=== PATIENT | female | born 1950 | race Caucasian/White ===

== ENCOUNTER → 2018-07-25 | Outpatient (CLI) | payer OTHER ==
--- NOTE | 2018-07-25 13:09 | Diagnostic Imaging Report ---
PROCEDURE: US left lower extremity venous. TECHNIQUE: Multiple real-time grayscale images were obtained over the left lower extremity in various projections. Additional duplex Doppler and color Doppler images were also obtained. INDICATION: Left leg swelling. FINDINGS: There is no evidence of left lower extremity DVT. Left lower extremity deep venous system shows normal compressibility with a normal response to augmentation and Valsalva. No fluid collection or mass is seen. IMPRESSION: No evidence of left lower extremity DVT. Dictated by: Dictated on workstation # [id number]
== END ==
LOC: RAD 12:19
PROVIDERS: ATTEND Pediatrics
DX: M79.89 Other specified soft tissue disorders (principal)

== ENCOUNTER → 2018-12-30 | Outpatient (CLI) | payer OTHER ==
--- NOTE | 2018-12-30 16:40 | Diagnostic Imaging Report ---
INDICATION: Right hand pain. TIME OF EXAM: 2:47 p.m. FINDINGS: Three views of the right hand were obtained. The distal radius and ulna are intact. Carpus appears intact. Metacarpals are unremarkable. The phalanges appear to be intact. Alignment is normal. No fractures are seen. IMPRESSION: No acute bony abnormality is detected. Dictated by: Dictated on workstation # [id number]
== END ==
LOC: RAD 14:21
PROVIDERS: ATTEND Pediatrics
DX: M79.641 Pain in right hand (principal)
CPT/HCPCS: 73130

== ENCOUNTER 2020-09-17 15:43 | Emergency (ER) | payer MEDICARE, OTHER ==
[~2020-09-17] VITALS: Ht 160 cm; Wt 105.0 kg
--- NOTE | 2020-09-17 15:50 | ED General ---
General Stated Complaint: HYPOGLYCEMIA History of Present Illness Date Seen by Provider: Sep 17, 2020 Time Seen by Provider: 15:48 Initial Comments 69-year-old female brought in with decreased responsiveness. EMS was called the patient's home where her blood sugar was found to be low and unmeasurable on glucometer. Patient was given an amp of D50. Patient is now feeling better and back to her baseline. Her last blood sugar was 194. Patient is on Metformin. She reports that she just has not had much of an appetite for about the last week and has needed much with little nausea and just not feeling well. She denies any fevers chills cough or other systemic complaints. Patient has had no vomiting or diarrhea. Allergies and Home Medications Allergies Coded Allergies: Penicillins (Verified Allergy, Unknown, 09/17/20) Patient Home Medication List Home Medication List Reviewed: Yes Review of Systems Review of Systems Constitutional: No chills, No fever; malaise EENTM: no symptoms reported Respiratory: no symptoms reported Cardiovascular: no symptoms reported Gastrointestinal: No abdominal pain, No diarrhea; loss of appetite, nausea; No vomiting Genitourinary: no symptoms reported Musculoskeletal: no symptoms reported Skin: no symptoms reported Psychiatric/Neurological: No Symptoms Reported Past Jucparj-Uphjkr-Iccoty Hx Past Med/Social Hx: Reviewed Nursing Past Med/Soc Hx Physical Exam Vital Signs Vital Signs - First Documented 09/17/20 15:43 Temp 36.4 Pulse 70 Resp 18 B/P (MAP) 114/51 (72) Pulse Ox 92 O2 Delivery Room Air Capillary Refill : Height, Weight, BMI Height: '" Weight: lbs. oz. kg; BMI Method: General Appearance: No Apparent Distress, WD/WN HEENT: PERRL/EOMI Respiratory: Lungs Clear, Normal Breath Sounds Cardiovascular: Regular Rate, Rhythm, No Edema Gastrointestinal: Non Tender, Soft Extremity: Normal Capillary Refill, Normal Inspection Neurologic/Psychiatric: Oriented x3, No Motor/Sensory Deficits, Normal Mood/Affect, weight count operator II-XII Norm as Tested Progress/Results/Core Measures Suspected Sepsis SIRS Temperature: Pulse: Respiratory Rate: Laboratory Tests 09/17/20 15:59: White Blood Count 4.3 Blood Pressure / Mean: Laboratory Tests 09/17/20 15:59: Creatinine 2.14H, Platelet Count 145, Total Bilirubin 0.5 Results/Orders Lab Results Laboratory Tests Test 09/17/20 15:47 6/11/21 15:59 09/17/20 16:42 09/17/20 17:24 Range/Units Glucometer 125 H 78 56 *L 70-110 MG/DL White Blood Count 4.3 4.3-11.0 10^3/uL Red Blood Count 4.91 4.35-5.85 10^6/uL Hemoglobin 13.6 11.5-16.0 G/DL Hematocrit 42 35-52 % Mean Corpuscular Volume 86 80-99 FL Mean Corpuscular Hemoglobin 28 25-34 PG Mean Corpuscular Hemoglobin Concent 32 32-36 G/DL Red Cell Distribution Width 15.1 H 10.0-14.5 % Platelet Count 145 130-400 10^3/uL Mean Platelet Volume 10.8 H 7.4-10.4 FL Sodium Level 137 135-145 MMOL/L Potassium Level 3.6 3.6-5.0 MMOL/L Chloride Level 100 98-107 MMOL/L Carbon Dioxide Level 24 21-32 MMOL/L Anion Gap 13 5-14 MMOL/L Blood Urea Nitrogen 60 H 7-18 MG/DL Creatinine 2.14 H 0.60-1.30 MG/DL Estimat Glomerular Filtration Rate 23 BUN/Creatinine Ratio 28 Glucose Level 122 H 70-105 MG/DL Calcium Level 7.8 L 8.5-10.1 MG/DL Corrected Calcium 8.4 L 8.5-10.1 MG/DL Total Bilirubin 0.5 0.1-1.0 MG/DL Aspartate Amino Transf (AST/SGOT) 120 H 5-34 U/L Alanine Aminotransferase (ALT/SGPT) 83 H 0-55 U/L Alkaline Phosphatase 67 40-136 U/L Total Protein 7.1 6.4-8.2 GM/DL Albumin 3.3 3.2-4.5 GM/DL My Orders Orders - RIVERA,CM L DO Cbc No Diff (09/17/20 15:51) Comprehensive Metabolic Panel (09/17/20 15:51) Ua Culture If Indicated (09/17/20 15:51) Accucheck Stat ONCE (09/17/20 15:51) D50w (Emergency) Syringe (Dextrose 50% 5 (09/17/20 17:30) Medications Given in ED Current Medications Medications Dose Ordered Sig/Priscila Route Start Time Stop Time Status Last Admin Dose Admin Dextrose 25 ml ONCE ONCE IV 09/17/20 17:30 09/17/20 17:31 DC 09/17/20 17:30 25 ML Vital Signs/I&O 09/17/20 15:43 Temp 36.4 Pulse 70 Resp 18 B/P (MAP) 114/51 (72) Pulse Ox 92 O2 Delivery Room Air Capillary Refill : Departure Impression Primary Impression: Hypoglycemia Disposition: HOME, SELF-CARE Condition: Stable Departure-Patient Inst. Referrals: BEN FORRESTER MD (PCP) Primary Care Physician Patient Instructions: HYPOGLYCEMIA Add. Discharge Instructions: hold metformin until appetite returns frequent small meals. CM RIVERA DO Sep 17, 2020 15:50
[2020-09-17 16:02] LABS: HEMATOCRIT 42 % (35-52); HEMOGLOBIN 13.6 G/DL (11.5-16.0); MEAN CORPUSCULAR HEMOGLOBIN 28 PG (25-34); MEAN CORPUSCULAR HGB CONC 32 G/DL (32-36); MEAN CORPUSCULAR VOLUME 86 FL (80-99); MEAN PLATELET VOLUME 10.8 FL (7.4-10.4); PLATELET COUNT 145 10^3/uL (130-400); WHITE BLOOD COUNT 4.3 10^3/uL (4.3-11.0)
[2020-09-17 16:22] LABS: POTASSIUM 3.6 MMOL/L (3.6-5.0)
[2020-09-17 16:23] LABS: ALBUMIN 3.3 GM/DL (3.2-4.5); BILIRUBIN,TOTAL 0.5 MG/DL (0.1-1.0); CALCIUM 7.8 MG/DL (8.5-10.1); CREATININE SERUM 2.14 MG/DL (0.60-1.30); TOTAL PROTEIN 7.1 GM/DL (6.4-8.2)
[2020-09-17] MEDS ORDERED: DEXTROSE 50% 50 ML (IMS) SYR ONE (17:27)
[2020-09-17] MEDS ORDERED: DEXTROSE 50% 50 ML (IMS) SYR IV ONE (17:30)
[2020-09-17 18:14] VITALS: BP 125/56
== END 2020-09-17 18:14 | disposition home or self-care (01) ==
LOC: EDUNIT# 15:43 → ER FS 15:44
DX: E16.2 Hypoglycemia, unspecified (principal)
CPT/HCPCS: 36415; 80053; 82947; 85027

== ENCOUNTER 2022-11-24 00:19 | Inpatient (IN) | payer MEDICARE, OTHER ==
[~2022-11-24] VITALS: Ht 160 cm; Wt 99.0 kg
[~2022-11-24 00:19] MED LIST: ALLO100T PO; ASPI-1238 PO; CARV3.122 PO; CARV6.252 PO; CITA20TA9 PO; DOCU-239 PO; FEN12TD TD; FOLI1TAB33 PO; FURO40TA4 PO; GBPN600T PO; GLIM2TAB4 PO; LIDO700A45 TP; LISI10TA25 PO; LISI5TAB20 PO; METF-397 PO; MGX400T PO; MORP-68 PO; OXC5T PO; OXYC5SOL19 NG; PETR113O TP; POTA-160 PO; POTA-185 PO; SENN-271 PO; THIA100T66 OG; THIA100T80 PO
--- NOTE | 2022-11-24 00:30 | ED Respiratory ---
General Stated Complaint: SOA Source: patient, EMS, old records Exam Limitations: no limitations History of Present Illness Date Seen by Provider: Nov 24, 2022 Time Seen by Provider: 00:18 Initial Comments 72-year-old female with past medical history of PE on warfarin, hypertension, ?CHF on lasix, and she also wears nighttime oxygen at 2 L coming in via EMS due to shortness of breath and respiratory failure. She felt short of breath about an hour prior to calling 911. She states it was fairly rapid in onset. EMS reports crackles in all lung adame and that she sounded "wet". She has noticed an increase in edema in both of her legs. She was on 4 L oxygen on EMS arrival with oxygen at 84%. They placed her on a nonrebreather followed by CPAP with improvement in her oxygenation. She states she is feeling much more comfortable now. EMS started an IV and gave 80 mg of Lasix. She takes 40 mg p.o. daily. She has not missed any doses of any of her medications including none missed of her warfarin. Allergies and Home Medications Allergies Coded Allergies: Penicillins (Verified Allergy, Unknown, 09/17/20) Patient Home Medication List Home Medication List Reviewed: Yes Allopurinol (Allopurinol) 100 Mg Tablet, 100 MG PO DAILY, (Reported) Entered as Reported by: CHUCK OLSON on 10/05/201313 Last Action: Last Taken Edited Aspirin (Aspirin EC) 81 Mg Tablet.dr, 81 MG PO DAILY Prescribed by: HUAN MCKEON on 10/20/20 1017 Last Action: Last Taken Edited Docusate Sodium (Colace) 100 Mg Capsule, 100 MG PO DAILY, (Reported) Entered as Reported by: RISHABH MCNEILL on 11/24/22112 Last Action: New Order Duloxetine HCl (Duloxetine HCl) 60 Mg Capsule.dr, 60 MG PO DAILY, (Reported) Entered as Reported by: RISHABH MCNEILL on 11/24/22112 Last Action: Last Taken Edited Furosemide (Furosemide) 40 Mg Tablet, 60 MG PO DAILY, (Reported) Entered as Reported by: CHUCK OLSON on 10/05/201313 Last Action: Last Taken Edited Gabapentin (Gabapentin) 600 Mg Tablet, 600 MG PO TID, (Reported) Entered as Reported by: RISHABH MCNEILL on 11/24/22112 Last Action: Last Taken Edited Lisinopril (Lisinopril) 10 Mg Tablet, 10 MG PO DAILY, (Reported) Entered as Reported by: RISHABH MCNEILL on 11/24/22112 Last Action: Last Taken Edited Metformin HCl (Metformin HCl) 500 Mg Tablet, 500 MG PO BID, (Reported) Entered as Reported by: RISHABH MCNEILL on 11/24/22112 Last Action: Last Taken Edited Morphine Sulfate (Morphine Sulfate ER) 15 Mg Tablet.er, 15 MG PO Q12H Prescribed by: HUAN MCKEON on 10/19/207 Last Action: Last Taken Edited Oxycodone Hcl (Oxyir Tablet) 5 Mg Tab, 5 MG PO Q4H PRN for PAIN-SEVERE (8-10) Prescribed by: HUAN MCKEON on 10/18/201850 Last Action: Last Taken Edited Warfarin Sodium (Warfarin Sodium) 10 Mg Tablet, 10 MG PO DAILY, (Reported) Entered as Reported by: RISHABH MCNEILL on 11/24/22112 Last Action: Last Taken Edited Warfarin Sodium (Warfarin Sodium) 1 Mg Tablet, 1 MG PO DAILY, (Reported) Entered as Reported by: RISHABH MCNEILL on 11/24/22112 Last Action: New Order Discontinued Medications Carvedilol (Carvedilol) 3.125 Mg Tablet, 3.125 MG PO BID Discontinued Reason: Referral/FU Appt-Addtl Prescribed by: HUAN MCKEON on 10/18/201850 Last Action: Discontinued Citalopram Hydrobromide (Citalopram HBr) 20 Mg Tablet, 20 MG PO DAILY Discontinued Reason: Referral/FU Appt-Addtl Prescribed by: HUAN MCKEON on 10/18/201850 Last Action: Discontinued Docusate Sodium (Dok) 100 Mg Capsule, 100 MG PO BID Discontinued Reason: Referral/FU Appt-Addtl Prescribed by: HUAN MCKEON on 10/18/201850 Last Action: Discontinued Folic Acid (Folic Acid) 1 Mg Tablet, 1 MG PO DAILY Discontinued Reason: Referral/FU Appt-Addtl Prescribed by: HUAN MCKEON on 10/18/201850 Last Action: Discontinued Gabapentin (Gabapentin) 600 Mg Tablet, 300 MG PO TID, (Reported) Discontinued Reason: Referral/FU Appt-Addtl Entered as Reported by: CHUCK OLSON on 10/05/20 1314 Last Action: Discontinued Lisinopril (Lisinopril) 5 Mg Tablet, 5 MG PO DAILY Discontinued Reason: Referral/FU Appt-Addtl Prescribed by: HUAN MCKEON on 10/18/201850 Last Action: Discontinued Magnesium Oxide (Magnesium Oxide) 400 Mg Tablet, 400 MG PO BID Discontinued Reason: Referral/FU Appt-Addtl Prescribed by: HUAN MCKEON on 10/18/201850 Last Action: Discontinued Potassium Chloride (Klor-Con 10) 10 Meq Tablet.er, 10 MEQ PO BID WITH MEALS Discontinued Reason: Referral/FU Appt-Addtl Prescribed by: HUAN MCKEON on 10/18/201850 Last Action: Discontinued Sennosides/Docusate Sodium (Stool Softener-Laxative Tablet) 1 Each Tablet, 1 EA PO BID PRN for CONSTIPATION-2ND LINE Discontinued Reason: Referral/FU Appt-Addtl Prescribed by: HUAN MCKEON on 10/18/201850 Last Action: Discontinued Thiamine HCl (Vitamin B-1) 100 Mg Tablet, 100 MG PO DAILY Discontinued Reason: Referral/FU Appt-Addtl Prescribed by: HUAN MCKEON on 10/18/201850 Last Action: Discontinued Review of Systems Review of Systems Constitutional: No fever EENTM: no symptoms reported Respiratory: see HPI Cardiovascular: no symptoms reported Gastrointestinal: no symptoms reported Genitourinary: no symptoms reported Musculoskeletal: no symptoms reported Skin: no symptoms reported Psychiatric/Neurological: No Symptoms Reported Hematologic/Lymphatic: See HPI Past Bmzyuyp-Wqqcma-Jrkatr Hx Patient Social History Substance use?: No Seasonal Allergies Seasonal Allergies: No Past Medical History Surgeries: Yes Cardiac, Hysterectomy Respiratory: No Cardiac: Yes Coronary Artery Disease, Hypertension 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 oz. kg; 37.30 BMI Method: General Appearance: WD/WN, no apparent distress, other (on CPAP) Eyes: Bilateral Eye Normal Inspection HEENT: PERRL/EOMI, normal ENT inspection, pharynx normal Neck: non-tender, full range of motion, supple, normal inspection Respiratory: chest non-tender, accessory muscle use, crackles Cardiovascular: tachycardia Gastrointestinal: normal bowel sounds, non tender, soft Extremities: normal range of motion, non-tender, normal inspection, no calf tenderness, normal capillary refill, pedal edema Neurologic/Psychiatric: no motor/sensory deficits, alert, normal mood/affect, oriented x 3 Skin: normal color, warm/dry Focused Exam Lactate Level 11/24/22 00:25: Lactic Acid Level 6.91*H Lactic Acid Level Laboratory Tests Test 11/24/22 00:25 Lactic Acid Level 6.91 MMOL/L (0.50-2.00) *H Progress/Results/Core Measures Suspected Sepsis SIRS Temperature: Pulse: Respiratory Rate: Laboratory Tests 11/24/22 00:25: White Blood Count 9.5 Blood Pressure / Mean: 11/24/22 00:25: Lactic Acid Level 6.91*H Laboratory Tests 11/24/22 00:25: Creatinine 0.73, INR Comment 2.1H, Platelet Count 375, Total Bilirubin 0.4 Results/Orders Lab Results Laboratory Tests Test 11/24/22 00:25 11/24/22 00:30 Range/Units White Blood Count 9.5 4.3-11.0 10^3/uL Red Blood Count 4.11 3.80-5.11 10^6/uL Hemoglobin 9.2 L 11.5-16.0 g/dL Hematocrit 32 L 35-52 % Mean Corpuscular Volume 78 L 80-99 fL Mean Corpuscular Hemoglobin 22 L 25-34 pg Mean Corpuscular Hemoglobin Concent 29 L 32-36 g/dL Red Cell Distribution Width 17.9 H 10.0-14.5 % Platelet Count 375 130-400 10^3/uL Mean Platelet Volume 10.1 9.0-12.2 fL Immature Granulocyte % (Auto) 1 % Neutrophils (%) (Auto) 64 42-75 % Lymphocytes (%) (Auto) 26 12-44 % Monocytes (%) (Auto) 8 0-12 % Eosinophils (%) (Auto) 2 0-10 % Basophils (%) (Auto) 0 0-10 % Neutrophils # (Auto) 6.1 1.8-7.8 10^3/uL Lymphocytes # (Auto) 2.5 1.0-4.0 10^3/uL Monocytes # (Auto) 0.7 0.0-1.0 10^3/uL Eosinophils # (Auto) 0.2 0.0-0.3 10^3/uL Basophils # (Auto) 0.0 0.0-0.1 10^3/uL Immature Granulocyte # (Auto) 0.1 0.0-0.1 10^3/uL Prothrombin Time 23.9 H 12.2-14.7 SEC INR Comment 2.1 H 0.8-1.4 Activated Partial Thromboplast Time 36 H 24-35 SEC Sodium Level 136 135-145 MMOL/L Potassium Level 4.2 3.6-5.0 MMOL/L Chloride Level 96 L 98-107 MMOL/L Carbon Dioxide Level 20 L 21-32 MMOL/L Anion Gap 20 H 5-14 MMOL/L Blood Urea Nitrogen 16 7-18 MG/DL Creatinine 0.73 0.60-1.30 MG/DL Estimat Glomerular Filtration Rate 87 BUN/Creatinine Ratio 22 Glucose Level 342 H 70-105 MG/DL Lactic Acid Level 6.91 *H 0.50-2.00 MMOL/L Calcium Level 9.1 8.5-10.1 MG/DL Corrected Calcium 9.2 8.5-10.1 MG/DL Magnesium Level 1.8 1.6-2.4 MG/DL Total Bilirubin 0.4 0.1-1.0 MG/DL Aspartate Amino Transf (AST/SGOT) 39 H 5-34 U/L Alanine Aminotransferase (ALT/SGPT) 40 0-55 U/L Alkaline Phosphatase 120 40-136 U/L Troponin I < 0.30 <0.30 NG/ML Pro-B-Type Natriuretic Peptide 304.9 H <125.0 PG/ML Total Protein 7.4 6.4-8.2 GM/DL Albumin 3.9 3.2-4.5 GM/DL Influenza Type A (RT-PCR) Not Detected Not Detecte Influenza Type B (RT-PCR) Not Detected Not Detecte SARS-CoV-2 RNA (RT-PCR) Not Detected Not Detecte [facility],MICHELLE K MD Cbc With Automated Diff (11/24/22) Comprehensive Metabolic Panel (11/24/22) Lactic Acid Analyzer (11/24/22) Magnesium (11/24/22) Protime With Inr (11/24/22) Partial Thromboplastin Time (11/24/22) Influenza A And B By Pcr (11/24/22) Probnp Fs (11/24/22) Troponin I Fs (11/24/22) Chest 1 View Ap/Pa Only (11/24/22) Ed Iv/Invasive Line Start (11/24/22) Ekg Tracing (11/24/22) O2 (11/24/22) Monitor-Rhythm Ecg Trace Only (11/24/22) Covid 19 Inhouse Test (11/24/22) Vital Signs/I&O 11/24/22 11/24/22 11/24/22 11/24/22 00:20 00:20 00:20 00:20 Temp 35.3 Pulse 102 Resp 24 B/P (MAP) 127/57 (80) Pulse Ox 98 98 98 O2 Delivery NIV CPAP NIV CPAP Nasal Cannula NIV CPAP O2 Flow Rate 2.00 FiO2 50 50 Capillary Refill : Progress Note : Progress Note 73-year-old female presenting due to respiratory failure and difficulty breathing. The patient was on CPAP per EMS, we transitioned her over to BiPAP with improvement in her work of breathing. Lung sounds were crackles all over. Blood pressure after BiPAP between 110s and 130s systolic, did not require medication to lower it. This came on very suddenly, clinically seems more consistent with flash pulmonary edema. She has been consistent with her warfarin dosing and her INR has been therapeutic, unlikely that this is a worsening burden of her PE, especially given the BiPAP improved her symptoms so much. Also less likely to be infectious in etiology given how fast it came on. Antibiotics were not given because of this. I also believe fluids would be detrimental to the patient at this point. Chest x-ray ordered and interpreted by me showing pulmonary edema bilaterally in all lung adame. Patient had received 80 mg of IV Lasix per EMS, and she had good urinary output in the ER. An IV was placed and labs were obtained and were significant for normal white blood cell count, low hemoglobin around 9.1 which is lower than her baseline, unclear of the etiology at this point, but no clinical signs of bleeding. Her creatinine is normal, electrolytes unremarkable, troponin negative, proBNP slightly elevated, INR therapeutic. Flu and COVID test were negative. Her lactic acid was very elevated at 6.91. This is likely secondary to her being hypoxic for some time prior to arrival. Once again I do not believe fluids would be helpful in her specific case. I contacted Dr. Mckeon who will admit the patient to the intensive care unit for her acute respiratory failure and pulmonary edema. I then contacted the ICU physician for signout. I then placed an order for consult with a ladies' locker room attendant in the morning. ECG Initial ECG Impression Date: Nov 24, 2022 Initial ECG Impression Time: 00:46 Initial ECG Rate: 104 Initial ECG Rhythm: S.Tach Comment Narrow QRS, normal axis, ST depression in the high lateral leads, no STEMI Diagnostic Imaging Diagonstic Imaging: Xray (chest) Departure Impression Primary Impression: Respiratory failure Qualified Codes: J96.01 - Acute respiratory failure with hypoxia Additional Impressions: Pulmonary edema Qualified Codes: J81.0 - Acute pulmonary edema Lactic acidosis Disposition: 30 STILL A PATIENT Condition: Stable Admissions Decision to Admit Reason: Admit from ER (General) Decision to Admit/Date: Nov 24, 2022 Time/Decision to Admit Time: 01:20 Transfer Transfer Facility: [facility] Method of Transfer: EMS Departure-Patient Inst. Referrals: BEN FORRESTER MD (PCP/Family) Primary Care Physician MICHELLE GONZALEZ MD Nov 24, 2022 00:30
[2022-11-24 00:44] LABS: BASOPHILS % (AUTO) 0 % (0-10); EOSINOPHILS # (AUTO) 0.2 10^3/uL (0.0-0.3); EOSINOPHILS % (AUTO) 2 % (0-10); HEMATOCRIT 32 % (35-52); HEMOGLOBIN 9.2 g/dL (11.5-16.0); LYMPHOCYTES # (AUTO) 2.5 10^3/uL (1.0-4.0); LYMPHOCYTES % (AUTO) 26 % (12-44); MEAN CORPUSCULAR HEMOGLOBIN 22 pg (25-34); MEAN CORPUSCULAR HGB CONC 29 g/dL (32-36); MEAN CORPUSCULAR VOLUME 78 fL (80-99); MEAN PLATELET VOLUME 10.1 fL (9.0-12.2); MONOCYTES # (AUTO) 0.7 10^3/uL (0.0-1.0); MONOCYTES % (AUTO) 8 % (0-12); NEUTROPHILS # (AUTO) 6.1 10^3/uL (1.8-7.8); NEUTROPHILS % (AUTO) 64 % (42-75); PLATELET COUNT 375 10^3/uL (130-400); WHITE BLOOD COUNT 9.5 10^3/uL (4.3-11.0)
[2022-11-24 01:10] LABS: INR 2.1 (0.8-1.4); PROTHROMBIN TIME PATIENT 23.9 SEC (12.2-14.7)
[2022-11-24] MEDS ORDERED: WRF1T PO (01:13)
[2022-11-24] MEDS ORDERED: DULO60CA59 PO (01:13)
[2022-11-24] MEDS ORDERED: DOCU-143 PO (01:13)
[2022-11-24] MEDS ORDERED: GBPN600T PO ×2 (01:13→11:12)
[2022-11-24] MEDS ORDERED: LISI10TA25 PO (01:13)
[2022-11-24] MEDS ORDERED: WRF10T PO (01:13)
[2022-11-24] MEDS ORDERED: METF-397 PO (01:13)
[2022-11-24 01:16] LABS: ALANINE AMINOTRANSFERASE 40 U/L (0-55); ALKALINE PHOSPHATASE 120 U/L (40-136); BILIRUBIN,TOTAL 0.4 MG/DL (0.1-1.0); BUN/CREATININE RATIO 22; CALCIUM 9.1 MG/DL (8.5-10.1); CARBON DIOXIDE 20 MMOL/L (21-32); CHLORIDE 96 MMOL/L (98-107); CREATININE SERUM 0.73 MG/DL (0.60-1.30); GFR ESTIMATED 87; GLUCOSE 342 MG/DL (70-105); MAGNESIUM 1.8 MG/DL (1.6-2.4); POTASSIUM 4.2 MMOL/L (3.6-5.0); SODIUM 136 MMOL/L (135-145)
[2022-11-24 01:17] LABS: ALBUMIN 3.9 GM/DL (3.2-4.5); TOTAL PROTEIN 7.4 GM/DL (6.4-8.2)
[2022-11-24] MEDS ORDERED: CATHETER FLUSH 10 ML SYR IVP PRN (03:45)
[2022-11-24] MEDS ORDERED: ACETAMINOPHEN 500 MG TABLET PO PRN ×2 (04:00→13:30)
[2022-11-24] MEDS ORDERED: ONDANSETRON INJECTION 4 MG/2 ML (SDV) IV PRN ×2 (04:00→09:45)
[2022-11-24 04:34] LABS: CALCIUM 8.7 MG/DL (8.5-10.1); CREATININE SERUM 0.9 MG/DL (0.60-1.30); POTASSIUM 4.7 MMOL/L (3.6-5.0)
[2022-11-24 05:01] VITALS: BP 127/57
[2022-11-24 05:11] LABS: BASOPHILS # (AUTO) 0.1 10^3/uL (0.0-0.1); BASOPHILS % (AUTO) 0 % (0-10); EOSINOPHILS # (AUTO) 0.1 10^3/uL (0.0-0.3); EOSINOPHILS % (AUTO) 0 % (0-10); HEMATOCRIT 31 % (35-52); LYMPHOCYTES # (AUTO) 2.7 10^3/uL (1.0-4.0); LYMPHOCYTES % (AUTO) 23 % (12-44); MEAN CORPUSCULAR HEMOGLOBIN 23 pg (25-34); MEAN CORPUSCULAR HGB CONC 30 g/dL (32-36); MEAN CORPUSCULAR VOLUME 76 fL (80-99); MEAN PLATELET VOLUME 10.4 fL (9.0-12.2); MONOCYTES % (AUTO) 9 % (0-12); NEUTROPHILS # (AUTO) 7.9 10^3/uL (1.8-7.8); NEUTROPHILS % (AUTO) 67 % (42-75); PLATELET COUNT 354 10^3/uL (130-400); WHITE BLOOD COUNT 11.8 10^3/uL (4.3-11.0)
[2022-11-24] MEDS ORDERED: NS IV 500 ML 500 ML IV PRN (05:45)
[2022-11-24 05:50] LABS: HYPOCHROMASIA SLIGHT; LYMPHOCYTES % (MANUAL) 23 %; MONOCYTES % (MANUAL) 7 %; NEUTROPHILS % (MANUAL) 70 %
[2022-11-24 05:51] LABS: POLYCHROMASIA SLIGHT
[2022-11-24] MEDS: MAGNESIUM 1 GM/100 ML IVPB 100 ML IV SCH ×2 (05:52→06:47)
[2022-11-24] MEDS: inSUlin ASPART 1 UNIT/0.01 ML (PER UNIT) SC SCH ×4 (05:52→20:50)
[2022-11-24] MEDS: POTASSIUM CHLORIDE 20 MEQ TABLET PO SCH ×2 (06:39→06:48)
[2022-11-24] MEDS: FUROSEMIDE INJECTION 40 MG/4 ML VIAL IV SCH (06:40)
[2022-11-24] MEDS: POTASSIUM CL 10MEQ/50ML IVPB 50 ML IV SCH (06:46)
[2022-11-24] MEDS: CATHETER FLUSH 10 ML SYR IVP SCH ×3 (06:47→23:11)
[2022-11-24] MEDS: morphine EXTENDED RELEASE 15 MG TABLET PO SCH ×2 (08:09→20:49)
[2022-11-24] MEDS: oxyCODONE IMMEDIATE RELEASE 5 MG TABLET PO SCH ×2 (08:09→20:50)
--- NOTE | 2022-11-24 08:30 | Diagnostic Imaging Report ---
INDICATION: Sudden onset shortness of air. COMPARISON: None FINDINGS: Single frontal radiographic view of the chest was obtained and demonstrates mild cardiomegaly and pulmonary vascular congestion. There is also diffuse prominence of interstitium. No large effusion or pneumothorax is seen. Osseous structures show no acute abnormalities. IMPRESSION:. Cardiomegaly with probable sequela CHF including interstitial pulmonary edema. Dictated by: Dictated on workstation # [id number]
[2022-11-24] MEDS: RT-ALBUTEROL SULF 2.5 MG/3 ML PRE-MIX VIAL INH SCH ×3 (09:04→20:15)
[2022-11-24] MEDS ORDERED: CALCIUM CARBONATE 500 MG CHEW TABLET PO PRN (09:45)
[2022-11-24] MEDS ORDERED: ANTACID SUSPENSION 30 ML UDC PO PRN (09:45)
[2022-11-24] MEDS ORDERED: MELATONIN 3 MG TABLET PO PRN (09:45)
[2022-11-24] MEDS ORDERED: BISACODYL 10 MG SUPPOSITORY PR PRN (09:45)
[2022-11-24] MEDS ORDERED: MILK OF MAGNESIA 400 MG/5 ML 30 ML UDC PO PRN (09:45)
[2022-11-24] MEDS ORDERED: ONDANSETRON 4 MG ORAL DISSOLVE TABLET PO PRN (09:45)
[2022-11-24] MEDS ORDERED: LACTULOSE SYRUP 10GM/15ML 30ML UDC PO PRN (09:45)
[2022-11-24] MEDS ORDERED: BISA-89 PO (11:12)
[2022-11-24] MEDS ORDERED: ASPI-1238 PO (11:12)
[2022-11-24] MEDS ORDERED: OXYC5TAB PO (11:12)
[2022-11-24] MEDS ORDERED: MORP-68 PO (11:12)
[2022-11-24 16:26] VITALS: BP 112/70
[2022-11-24] MEDS ORDERED: RT-ALBUTEROL SULF 2.5 MG/3 ML PRE-MIX VIAL INH PRN (17:00)
--- NOTE | 2022-11-24 18:12 | Consultation-Cardiology ---
HPI-Cardiology Cardiology Consultation: Date of Consultation 11/24/22 Date of Admission Attending Physician Justin Curiel MD Admitting Physician Admitting Physician: Faiza Mckeon DO Attending Physician: Lila Glez MD Consulting Physician Carlos GONZALEZ MD HPI: Time Seen by a Provider: 12:00 Chief Complaint: Shortness of breath This is a 72-year-old lady who has history of pulmonary embolism but has been compliant with warfarin. Also has history of hypertension. She tells me that she does have history of diastolic congestive heart failure chronic. She is on nighttime oxygen. Unclear history of COPD. She presents with shortness of breath and respiratory failure. She was hypoxic in the field with bilateral peripheral edema and rhonchi. She was given a nonrebreather which improved her breathing. She was also given IV Lasix. She denies active smoking. Review of Systems-Cardiology Review of Systems Constitutional: no symptoms reported Eyes: no symptoms reported Ears/Nose/Throat: no symptoms reported Respiratory: shortness of breath Cardiovascular: no symptoms reported KAL-Nfbalr-Jlxshm Hx Patient Social History 2nd Hand Smoke Exposure: No Alcohol Use?: No Pt feels they are or have been: No Past Medical History PMH As described under Assessment. Allergies and Home Medications Allergies Coded Allergies: Penicillins (Verified Allergy, Unknown, 09/17/20) Patient Home Medication List Home Medication List Reviewed: Yes Allopurinol (Allopurinol) 100 Mg Tablet, 100 MG PO DAILY, (Reported) Entered as Reported by: CHUCK OLSON on 10/05/20 1314 Last Action: Reviewed Aspirin (Aspirin EC) 81 Mg Tablet.dr, 81 MG PO HS, (Reported) Entered as Reported by: CHUCK OLSON on 11/24/22 111 Last Action: Reviewed Bisacodyl (Laxative) 5 Mg Tablet, 5 MG PO DAILY PRN for CONSTIPATION-4TH LINE, (Reported) Entered as Reported by: CHUCK OLSON on 11/24/22 111 Last Action: Reviewed Docusate Sodium (Colace) 100 Mg Capsule, 100 MG PO Q48H, (Reported) Entered as Reported by: RISHABH MCNEILL on 11/24/22112 Last Action: Reviewed Duloxetine HCl (Duloxetine HCl) 60 Mg Capsule.dr, 60 MG PO HS, (Reported) Entered as Reported by: RISHABH MCNEILL on 11/24/22112 Last Action: Reviewed Furosemide (Furosemide) 40 Mg Tablet, 60 MG PO DAILY, (Reported) Entered as Reported by: CHUCK OLSON on 10/05/20 1314 Last Action: Reviewed Gabapentin (Gabapentin) 600 Mg Tablet, 600 MG PO DAILY, (Reported) Entered as Reported by: RISHABH MCNEILL on 11/24/22112 Last Action: Reviewed Gabapentin (Gabapentin) 600 Mg Tablet, 1,200 MG PO HS, (Reported) Entered as Reported by: CHUCK OLSON on 11/24/221111 Last Action: Reviewed Lisinopril (Lisinopril) 10 Mg Tablet, 10 MG PO DAILY, (Reported) Entered as Reported by: RISHABH MCNEILL on 11/24/22112 Last Action: Reviewed Metformin HCl (Metformin HCl) 500 Mg Tablet, 500 MG PO BID, (Reported) Entered as Reported by: RISHABH MCNEILL on 11/24/22112 Last Action: Reviewed Morphine Sulfate (Morphine Sulfate ER) 15 Mg Tablet.er, 15 MG PO Q12H, (Reported) Entered as Reported by: CHUCK OLSON on 11/24/221111 Last Action: Reviewed Oxycodone HCl (Oxycodone HCl) 5 Mg Tablet, 5 MG PO BID, (Reported) Entered as Reported by: CHUCK OLSON on 11/24/221111 Last Action: Reviewed Warfarin Sodium (Warfarin Sodium) 10 Mg Tablet, 10 MG PO HS, (Reported) Entered as Reported by: RISHABH MCNEILL on 11/24/22112 Last Action: Reviewed Warfarin Sodium (Warfarin Sodium) 1 Mg Tablet, 3 MG PO HS, (Reported) Entered as Reported by: RISHABH MCNEILL on 11/24/22112 Last Action: Reviewed Discontinued Medications Aspirin (Aspirin EC) 81 Mg Tablet.dr, 81 MG PO DAILY Discontinued Reason: No Longer Taking Prescribed by: FAIZA MCKEON on 10/20/20 1017 Last Action: Discontinued Carvedilol (Carvedilol) 3.125 Mg Tablet, 3.125 MG PO BID Discontinued Reason: Referral/FU Appt-Addtl Prescribed by: FAIZA MCKEON on 10/18/20 1498 Last Action: Discontinued Citalopram Hydrobromide (Citalopram HBr) 20 Mg Tablet, 20 MG PO DAILY Discontinued Reason: Referral/FU Appt-Addtl Prescribed by: FAIZA MCKEON on 10/18/201850 Last Action: Discontinued Docusate Sodium (Dok) 100 Mg Capsule, 100 MG PO BID Discontinued Reason: Referral/FU Appt-Addtl Prescribed by: FAIZA MCKEON on 10/18/201850 Last Action: Discontinued Folic Acid (Folic Acid) 1 Mg Tablet, 1 MG PO DAILY Discontinued Reason: Referral/FU Appt-Addtl Prescribed by: FAIZA MCKEON on 10/18/201850 Last Action: Discontinued Gabapentin (Gabapentin) 600 Mg Tablet, 300 MG PO TID, (Reported) Discontinued Reason: Referral/FU Appt-Addtl Entered as Reported by: HCUCK OLSON on 10/05/20 1314 Last Action: Discontinued Lisinopril (Lisinopril) 5 Mg Tablet, 5 MG PO DAILY Discontinued Reason: Referral/FU Appt-Addtl Prescribed by: FAIZA MCKEON on 10/18/201850 Last Action: Discontinued Magnesium Oxide (Magnesium Oxide) 400 Mg Tablet, 400 MG PO BID Discontinued Reason: Referral/FU Appt-Addtl Prescribed by: FAIZA MCKEON on 10/18/201850 Last Action: Discontinued Morphine Sulfate (Morphine Sulfate ER) 15 Mg Tablet.er, 15 MG PO Q12H Discontinued Reason: Duplicate Order Prescribed by: FAIZA MCKEON on 10/19/20 1327 Last Action: Discontinued Oxycodone Hcl (Oxyir Tablet) 5 Mg Tab, 5 MG PO Q4H PRN for PAIN-SEVERE (8-10) Discontinued Reason: No Longer Taking Prescribed by: FAIZA MCKEON on 10/18/201850 Last Action: Discontinued Potassium Chloride (Klor-Con 10) 10 Meq Tablet.er, 10 MEQ PO BID WITH MEALS Discontinued Reason: Referral/FU Appt-Addtl Prescribed by: FAIZA MCKEON on 10/18/201850 Last Action: Discontinued Sennosides/Docusate Sodium (Stool Softener-Laxative Tablet) 1 Each Tablet, 1 EA PO BID PRN for CONSTIPATION-2ND LINE Discontinued Reason: Referral/FU Appt-Addtl Prescribed by: FAIZA MCKEON on 10/18/201850 Last Action: Discontinued Thiamine HCl (Vitamin B-1) 100 Mg Tablet, 100 MG PO DAILY Discontinued Reason: Referral/FU Appt-Addtl Prescribed by: FAIZA MCKEON on 10/18/201850 Last Action: Discontinued Exam Vital Signs Vital Signs Date Time Temp Pulse Resp B/P (MAP) Pulse Ox O2 Delivery O2 Flow Rate FiO2 11/24/22 17:00 94 18 125/69 (83) 100 Nasal Cannula 1.00 11/24/22 16:26 36.3 24 Physical Exam Constitutional: Mild respiratory distress. Chest: Decreased air entry bilaterally. CVS: Normal regular rate and rhythm. Neuro: Nonfocal. Mild peripheral edema. Labs Laboratory Tests Test 11/24/22 00:25 11/24/22 00:30 11/24/22 03:50 11/24/22 04:53 Range/Units White Blood Count 9.5 11.8 H 4.3-11.0 10^3/uL Red Blood Count 4.11 3.99 3.80-5.11 10^6/uL Hemoglobin 9.2 L 9.0 L 11.5-16.0 g/dL Hematocrit 32 L 31 L 35-52 % Mean Corpuscular Volume 78 L 76 L 80-99 fL Mean Corpuscular Hemoglobin 22 L 23 L 25-34 pg Mean Corpuscular Hemoglobin Concent 29 L 30 L 32-36 g/dL Red Cell Distribution Width 17.9 H 17.8 H 10.0-14.5 % Platelet Count 375 354 130-400 10^3/uL Mean Platelet Volume 10.1 10.4 9.0-12.2 fL Immature Granulocyte % (Auto) 1 1 % Neutrophils (%) (Auto) 64 67 42-75 % Lymphocytes (%) (Auto) 26 23 12-44 % Monocytes (%) (Auto) 8 9 0-12 % Eosinophils (%) (Auto) 2 0 0-10 % Basophils (%) (Auto) 0 0 0-10 % Neutrophils # (Auto) 6.1 7.9 H 1.8-7.8 10^3/uL Lymphocytes # (Auto) 2.5 2.7 1.0-4.0 10^3/uL Monocytes # (Auto) 0.7 1.0 0.0-1.0 10^3/uL Eosinophils # (Auto) 0.2 0.1 0.0-0.3 10^3/uL Basophils # (Auto) 0.0 0.1 0.0-0.1 10^3/uL Immature Granulocyte # (Auto) 0.1 0.1 0.0-0.1 10^3/uL Prothrombin Time 23.9 H 12.2-14.7 SEC INR Comment 2.1 H 0.8-1.4 Activated Partial Thromboplast Time 36 H 24-35 SEC Sodium Level 136 135 135-145 MMOL/L Potassium Level 4.2 4.7 3.6-5.0 MMOL/L Chloride Level 96 L 99 98-107 MMOL/L Carbon Dioxide Level 20 L 24 21-32 MMOL/L Anion Gap 20 H 12 5-14 MMOL/L Blood Urea Nitrogen 16 15 7-18 MG/DL Creatinine 0.73 0.90 0.60-1.30 MG/DL Estimat Glomerular Filtration Rate 87 68 BUN/Creatinine Ratio 22 17 Glucose Level 342 H 282 H 70-105 MG/DL Lactic Acid Level 6.91 *H 2.93 *H 0.50-2.00 MMOL/L Calcium Level 9.1 8.7 8.5-10.1 MG/DL Corrected Calcium 9.2 8.5-10.1 MG/DL Magnesium Level 1.8 1.8 1.6-2.4 MG/DL Total Bilirubin 0.4 0.1-1.0 MG/DL Aspartate Amino Transf (AST/SGOT) 39 H 5-34 U/L Alanine Aminotransferase (ALT/SGPT) 40 0-55 U/L Alkaline Phosphatase 120 40-136 U/L Troponin I < 0.30 <0.30 NG/ML Pro-B-Type Natriuretic Peptide 304.9 H <125.0 PG/ML Total Protein 7.4 6.4-8.2 GM/DL Albumin 3.9 3.2-4.5 GM/DL Influenza Type A (RT-PCR) Not Detected Not Detecte Influenza Type B (RT-PCR) Not Detected Not Detecte SARS-CoV-2 RNA (RT-PCR) Not Detected Not Detecte Neutrophils % (Manual) 70 % Lymphocytes % (Manual) 23 % Monocytes % (Manual) 7 % Polychromasia SLIGHT Hypochromasia SLIGHT Test 11/24/22 07:03 11/24/22 08:50 11/24/22 11:05 11/24/22 16:32 Range/Units Lactic Acid Level 2.81 *H 3.06 *H 2.54 *H 0.50-2.00 MMOL/L Glucometer 252 H 70-110 MG/DL ECG Impression ECG Initial ECG Rhythm: Normal Sinus Initial ECG Intervals Poor R wave progression in the anterior precordial leads. Mild ST depressions noted in the lead I and aVL. A/P-Cardiology Assessment/Admission Diagnosis Acute respiratory failure, Acute on chronic diastolic heart failure, Pulmonary embolism, Severe mitral regurgitation Plan Respiratory failure is out of proportion to the BNP level of 300. Patient has been on uninterrupted oral anticoagulation. INR is 2.1. Unlikely to be pulmonary embolism. Possible acute on chronic diastolic congestive heart failure. Initial troponin is negative. Will request serial troponin. Echocardiogram showed severe mitral regurgitation. Normal LV function. Patient denies any chest pain. Carlos GONZALEZ MD Nov 24, 2022 18:12
[2022-11-24] MEDS: DOCUSATE SODIUM 100 MG CAPSULE PO SCH (20:47)
[2022-11-24] MEDS: LORazepam 0.5 MG TABLET PO PRN (20:47)
[2022-11-24] MEDS: warFARin 10 MG (COUMADIN) TAB PO SCH (20:48)
[2022-11-24] MEDS: warFARin 1 MG (COUMADIN) TAB PO SCH (20:49)
[2022-11-24] MEDS: SENNOSIDES 8.6 MG (SENOKOT) TAB PO SCH (20:49)
[2022-11-24] MEDS ORDERED: morphine EXTENDED RELEASE 15 MG TABLET PO SCH (21:45)
--- NOTE | 2022-11-24 21:59 | History & Physical-Hospitalist ---
History of Present Illness HPI/Chief Complaint Stacey Brown is a 72 year old female with PMH HTN, T2DM, CHF, history of PE, gout, obesity, who presented with shortness of breath. This was appartently sudden onset last night. She denies fevers and chills. She denies cough. She denies chest pain. She denies nausea and vomiting. She denies abdominal pain. She reports orthopnea and PND. She has been compliant with her coumadin. She normally wears 2 L oxygen at night. She was placed on BiPAP. Upon my exam, her respiratory distress has resolved. She has no complaints. Source: patient Exam Limitations: no limitations Date Seen 11/24/22 Time Seen by a Provider: 09:30 Attending Physician Justin Curiel MD PCP Admitting Physician: Faiza North DO Attending Physician: Deborah Nielson MD Referring Physician Date of Admission Nov 24, 2022 at 02:50 Home Medications & Allergies Home Medications Reviewed patient Home Medication Reconciliation performed by pharmacy medication reconciliations cable television technician and/or nursing. Patients Allergies have been reviewed. Allergies Allergies Coded Allergies Penicillins (Verified Allergy, Unknown, 09/17/20) Past Cucrdix-Yaiwqi-Dpcksy Hx Patient Social History Tobacco Use?: No Use of E-Cig and/or Vaping dev: No Substance use?: No Alcohol Use?: No Pt feels they are or have been: No Immunizations Up To Date First/Initial COVID19 Vaccinat: unk Second COVID19 Vaccination Ivan: unk Tetanus Booster (TDap): Unknown Seasonal Allergies Seasonal Allergies: No Current Status status: No status: No Advance Directives: No Communicates: Verbally Primary Language: Togolese Preferred Spoken Language: Togolese Is interpretation needed?: No Sensory deficits: Vision impairment Implanted or Applied Medical D: None Past Medical History Surgeries: Cardiac, Hysterectomy Coronary Artery Disease, Hypertension Neuropathy MARKETING SENIOR RECRUITER History: Hysterectomy Arthritis, Chronic Back Pain Diabetes, Non-Insulin dep Blood Disorders: No CAD, HTN, DM2, chronic back pain on oxycodone Family Medical History No Pertinent Family Hx Review of Systems Constitutional: no symptoms reported Respiratory: short of breath Cardiovascular: no symptoms reported Gastrointestinal: no symptoms reported Physical Exam Physical Exam Vital Signs Vital Signs - First Documented 11/24/22 00:20 Temp 35.3 Pulse 102 Resp 24 B/P (MAP) 127/57 (80) O2 Flow Rate 2.00 Capillary Refill : Less Than 3 Seconds Height, Weight, BMI Height: '" Weight: lbs. oz. kg; 36.83 BMI Method: General Appearance: No Apparent Distress, Obese HEENT: PERRL/EOMI, Pharynx Normal Neck: Normal Inspection, Supple Respiratory: Lungs Clear, No Respiratory Distress Cardiovascular: Regular Rate, Rhythm, No Murmur Gastrointestinal: Normal Bowel Sounds, Non Tender, Soft Extremity: Normal Inspection, Pedal Edema Neurologic/Psychiatric: Alert, Normal Mood/Affect Skin: Normal Color, Warm/Dry Results Results/Procedures Labs Laboratory Tests 11/24/22 00:25 11/24/22 03:50 Patient resulted labs reviewed. Imaging: Reviewed Imaging Report Assessment/Plan Admission Diagnosis Acute on chronic respiratory failure with hypoxia Admission Status: Inpatient Order (span 2 midnights) Reason for Inpatient Admission: IV diuresis Assessment and Plan Acute on chronic respiratory failure with hypoxia Acute pulmonary edema Acute on chronic HFpEF CXR with pulmonary edema Supplemental oxygen as needed IV Lasix Cardiology consulted History of PE Coumadin INR 2.1 HTN Gout Chronic pain Continue home meds T2DM Metformin Sliding scale insulin Diagnosis/Problems Diagnosis/Problems (1) Acute on chronic respiratory failure with hypoxia Status: Acute (2) Acute pulmonary edema Status: Acute (3) Acute on chronic heart failure with preserved ejection fraction (HFpEF) Status: Acute (4) History of pulmonary embolism Status: Chronic (5) HTN (hypertension) Status: Chronic (6) T2DM (type 2 diabetes mellitus) Status: Chronic 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
[2022-11-24] MEDS ORDERED: GABAPENTIN 600 MG TABLET ONE (23:10)
[2022-11-24] MEDS: DULoxetine 30 MG CAPSULE PO SCH (23:11)
[2022-11-24] MEDS: GABAPENTIN 600 MG TABLET PO SCH (23:11)
[2022-11-25 04:51] LABS: BASOPHILS # (AUTO) 0.1 10^3/uL (0.0-0.1); BASOPHILS % (AUTO) 1 % (0-10); EOSINOPHILS # (AUTO) 0.2 10^3/uL (0.0-0.3); EOSINOPHILS % (AUTO) 2 % (0-10); HEMATOCRIT 28 % (35-52); HEMOGLOBIN 8.3 g/dL (11.5-16.0); LYMPHOCYTES # (AUTO) 4.4 10^3/uL (1.0-4.0); LYMPHOCYTES % (AUTO) 43 % (12-44); MEAN CORPUSCULAR HEMOGLOBIN 23 pg (25-34); MEAN CORPUSCULAR HGB CONC 30 g/dL (32-36); MEAN CORPUSCULAR VOLUME 75 fL (80-99); MEAN PLATELET VOLUME 10.4 fL (9.0-12.2); MONOCYTES # (AUTO) 0.8 10^3/uL (0.0-1.0); MONOCYTES % (AUTO) 8 % (0-12); NEUTROPHILS # (AUTO) 4.8 10^3/uL (1.8-7.8); NEUTROPHILS % (AUTO) 47 % (42-75); PLATELET COUNT 334 10^3/uL (130-400); WHITE BLOOD COUNT 10.4 10^3/uL (4.3-11.0)
[2022-11-25 04:56] LABS: INR 2.6 (0.8-1.4); PROTHROMBIN TIME PATIENT 27.5 SEC (12.2-14.7)
[2022-11-25 05:05] LABS: CALCIUM 8.6 MG/DL (8.5-10.1); CREATININE SERUM 0.76 MG/DL (0.60-1.30); POTASSIUM 4.1 MMOL/L (3.6-5.0)
[2022-11-25] MEDS: POTASSIUM CHLORIDE 20 MEQ TABLET PO SCH ×2 (05:25→06:31)
[2022-11-25] MEDS: inSUlin ASPART 1 UNIT/0.01 ML (PER UNIT) SC SCH ×4 (05:25→21:00)
[2022-11-25] MEDS: POTASSIUM CL 10MEQ/50ML IVPB 50 ML IV SCH (05:25)
[2022-11-25] MEDS: CATHETER FLUSH 10 ML SYR IVP SCH ×3 (06:31→20:46)
[2022-11-25] MEDS: MAGNESIUM 1 GM/100 ML IVPB 100 ML IV SCH (06:32)
[2022-11-25] MEDS: FUROSEMIDE INJECTION 40 MG/4 ML VIAL IV SCH (06:32)
[2022-11-25] MEDS ORDERED: metFORMIN 500 MG TABLET PO SCH ×2 (08:00→18:00)
[2022-11-25] MEDS: SENNOSIDES 8.6 MG (SENOKOT) TAB PO SCH ×2 (08:40→20:45)
[2022-11-25] MEDS: morphine EXTENDED RELEASE 15 MG TABLET PO SCH ×2 (08:40→20:45)
[2022-11-25] MEDS: ALLOPURINOL 100 MG TABLET PO SCH (08:40)
[2022-11-25] MEDS: DOCUSATE SODIUM 100 MG CAPSULE PO SCH ×2 (08:40→20:45)
[2022-11-25] MEDS: GABAPENTIN 600 MG TABLET PO SCH ×2 (08:40→20:45)
[2022-11-25] MEDS: oxyCODONE IMMEDIATE RELEASE 5 MG TABLET PO SCH ×2 (08:40→20:46)
[2022-11-25] MEDS: RT-ALBUTEROL SULF 2.5 MG/3 ML PRE-MIX VIAL INH SCH ×2 (09:15→21:38)
[2022-11-25] MEDS ORDERED: glipiZIDE 5 MG TABLET PO ONE (09:45)
--- NOTE | 2022-11-25 11:25 | Tele-ICU Progress Note ---
Subjective Date Seen by a Provider: Nov 25, 2022 Time Seen by a Provider: 11:24 Subjective/Events-last exam (Tele-ICU Physician , Progress Note ) Service provided via interactive audio and video telecommunications E-CARE system to a patient admitted to ICU bed in [facility]. Patient is seen today due to persistent need of ICU care Available chart/ vitals / labs / Images reviewed Video assessment done using teleICU camera, rest of exam as per RN She is a 72-year-old female with past medical history of hypertension, type 2 diabetes mellitus, congestive heart failure and pulmonary embolism on Coumadin. She presented to the emergency room with shortness of breath and found to be in respiratory distress hence she is put on BiPAP. Usually she wears oxygen 2 L of nasal cannula. An echocardiogram done revealed severe mitral regurgitation. She has been diuresed since then and now she is feeling much better currently she is on room air. Impression 1. Congestive heart failure acute onset 2. History of pulmonary embolism 3. Severe mitral regurgitation. 4. Acute respiratory failure due to hypoxia Recommendations 1. Diuretic therapy per cardiology 2. Continue Coumadin therapy 3. Reevaluate for need for home oxygen. Coordination of care with primary care and bedside consultants. I am remotely monitoring this patient from Tele icu station in [place]. I am unable to do the bedside exam, and history/physical and pertinent information is taken from other notes in the computer and bedside staff. Certain portions of this document may have been dictated utilizing voice recognition technology such as [employer]. Inherent to this technology, typographical and grammatical errors may exist. As much as I am diligent to identify and correct to these mistakes, some errors may remain in the document. Critical care time devoted to this patient today is approximately is--15 minutes Sepsis Event Evaluation Height, Weight, BMI Height: '" Weight: lbs. oz. kg; 37.50 BMI Method: Focused Exam Lactate Level 11/24/22 07:03: Lactic Acid Level 2.81*H 11/24/22 08:50: Lactic Acid Level 3.06*H 11/24/22 11:05: Lactic Acid Level 2.54*H Exam Exam Patient acknowledged, consented, and participated in this virtual visit which was conducted using real time audio/video Vital Signs Date Time Temp Pulse Resp B/P (MAP) Pulse Ox O2 Delivery O2 Flow Rate FiO2 11/25/22 11:00 101 17 118/64 (82) 96 Room Air 11/25/22 10:29 89 Room Air 11/25/22 10:00 103 22 124/88 (100) 92 Room Air 11/25/22 09:23 Room Air 2.00 11/25/22 09:15 100 Nasal Cannula 2.00 11/25/22 09:00 105 15 117/78 (91) 98 Nasal Cannula 2.00 11/25/22 08:49 36.2 11/25/22 08:20 98 Nasal Cannula 2.00 11/25/22 08:00 111 11/25/22 08:00 110 92 Nasal Cannula 2.00 11/25/22 07:00 89 129/84 (99) 97 Nasal Cannula 2.00 11/25/22 06:00 107/54 (71) Nasal Cannula 2.00 11/25/22 05:00 118/59 (78) Nasal Cannula 2.00 11/25/22 04:00 100/65 (77) Nasal Cannula 2.00 11/25/22 03:48 96 Nasal Cannula 2.00 11/25/22 03:00 141/79 (99) Nasal Cannula 2.00 11/25/22 02:00 127/86 (100) Nasal Cannula 2.00 11/25/22 01:00 89 117/71 (86) 96 11/25/22 01:00 89 117/71 (86) 96 Nasal Cannula 2.00 11/25/22 01:00 96 11/25/22 00:00 101 14 120/55 (76) 97 Nasal Cannula 2.00 11/25/22 00:00 101 14 120/55 (76) 97 11/24/22 23:36 95 Nasal Cannula 2.00 11/24/22 23:33 36.0 11/24/22 23:00 102 131/66 (87) 92 11/24/22 23:00 102 131/66 (87) 92 Nasal Cannula 2.00 11/24/22 22:00 105 118/38 (56) 97 Nasal Cannula 2.00 11/24/22 21:00 109 16 125/65 (90) 96 Nasal Cannula 2.00 11/24/22 20:15 99 Nasal Cannula 2.00 11/24/22 20:00 36.6 11/24/22 20:00 96 Nasal Cannula 2.00 8/18/23 20:00 113/60 (82) 94 Nasal Cannula 2.00 11/24/22 19:00 109 11/24/22 19:00 103 14 103/89 (94) 95 Nasal Cannula 2.00 11/24/22 18:51 Nasal Cannula 2.00 11/24/22 18:00 107 16 127/58 (86) 94 Nasal Cannula 1.00 11/24/22 17:00 94 18 125/69 (83) 100 Nasal Cannula 1.00 11/24/22 16:53 95 Nasal Cannula 1.00 11/24/22 16:26 36.3 104 95 24 11/24/22 16:00 35.8 11/24/22 15:00 104 18 112/70 (84) 95 Nasal Cannula 1.00 11/24/22 14:00 101 34 106/62 (77) 92 Nasal Cannula 1.00 11/24/22 13:00 98 16 113/52 (74) 94 Nasal Cannula 1.00 11/24/22 12:24 Nasal Cannula 1.00 11/24/22 12:24 94 Nasal Cannula 1.00 11/24/22 12:22 105 11/24/22 12:00 101 18 115/56 (66) 96 Nasal Cannula 2.00 11/24/22 11:52 36.3 I & O 11/25/22 07:00 Intake Total 1320 ml Output Total 2600 ml Balance -1280 ml Height & Weight Height: '" Weight: lbs. oz. kg; 37.50 BMI Method: General Appearance: No Apparent Distress, Obese HEENT: PERRL/EOMI, Pharynx Normal Neck: Normal Inspection, Supple Respiratory: Lungs Clear, No Respiratory Distress Cardiovascular: Regular Rate, Rhythm, No Murmur Capillary Refill: Less Than 3 Seconds Gastrointestinal: normal bowel sounds, non tender, soft Extremity: Normal Inspection, Pedal Edema Neurologic/Psychiatric: Alert, Normal Mood/Affect Skin: Normal Color, Warm/Dry Results Lab Laboratory Tests 11/24/22 00:25 11/24/22 03:50 11/25/22 03:57 Assessment/Plan Assessment/Plan as above Critical Care: Critically Ill Patient Time spent with patient (mins): 15 ELSA BENITEZ MD Nov 25, 2022 11:25
[2022-11-25] MEDS: ENOXAPARIN 100 MG/1 ML SYRINGE SC SCH (14:32)
--- NOTE | 2022-11-25 14:54 | Progress Note - Hospitalist ---
Subjective HPI/CC On Admission Date Seen by Provider: Nov 25, 2022 Time Seen by Provider: 10:20 Stacey Brown is a 72 year old female with PMH HTN, T2DM, CHF, history of PE, gout, obesity, who presented with shortness of breath. This was appartently sudden onset last night. She denies fevers and chills. She denies cough. She denies chest pain. She denies nausea and vomiting. She denies abdominal pain. She reports orthopnea and PND. She has been compliant with her coumadin. She normally wears 2 L oxygen at night. She was placed on BiPAP. Upon my exam, her respiratory distress has resolved. She has no complaints. Subjective/Events-last exam She is feeling better. She denies shortness of breath. She does have some dyspnea with exertion. She denies chest pain. Focused Exam Lactate Level 11/24/22 07:03: Lactic Acid Level 2.81*H 11/24/22 08:50: Lactic Acid Level 3.06*H 11/24/22 11:05: Lactic Acid Level 2.54*H Objective Exam Vital Signs Vital Signs Date Time Temp Pulse Resp B/P (MAP) Pulse Ox O2 Delivery O2 Flow Rate FiO2 11/25/22 14:00 91 104/65 (78) 96 Nasal Cannula 2.00 11/25/22 12:00 18 11/25/22 08:49 36.2 11/24/22 16:26 24 Capillary Refill : Less Than 3 Seconds General Appearance: No Apparent Distress, Obese Respiratory: Lungs Clear, No Respiratory Distress Cardiovascular: Regular Rate, Rhythm, No Murmur Gastrointestinal: Normal Bowel Sounds, Soft Extremity: Normal Inspection, No Pedal Edema Neurologic/Psychiatric: Alert, Normal Mood/Affect Skin: Normal Color, Warm/Dry Results/Procedures Lab Laboratory Tests 11/25/22 03:57 Patient resulted labs reviewed. Imaging: Reviewed Imaging Report Assessment/Plan Assessment and Plan Assess & Plan/Chief Complaint Acute on chronic respiratory failure with hypoxia Acute pulmonary edema Acute on chronic HFpEF NSTEMI CXR with pulmonary edema Supplemental oxygen as needed IV Lasix Metoprolol Cardiology following Troponin elevated, planning for left heart cath Sunday ASA and Lipitor History of PE Coumadin INR 2.6 HTN Gout Chronic pain Continue home meds T2DM Sliding scale insulin Critical Care Critically Ill Patient Diagnosis/Problems Diagnosis/Problems (1) Acute on chronic respiratory failure with hypoxia Status: Acute (2) Acute pulmonary edema Status: Acute (3) Acute on chronic heart failure with preserved ejection fraction (HFpEF) Status: Acute (4) History of pulmonary embolism Status: Chronic (5) HTN (hypertension) Status: Chronic (6) T2DM (type 2 diabetes mellitus) Status: Chronic 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
[2022-11-25 15:05] LABS: TRIGLYCERIDES 94 MG/DL (<150); VLDL CHOLESTEROL 19 MG/DL (5-40)
[2022-11-25 15:10] LABS: CHOLESTEROL 211 MG/DL (< 200)
[2022-11-25 15:11] LABS: HDL CHOLESTEROL 58 MG/DL (40-60)
--- NOTE | 2022-11-25 16:27 | Cardiology Progress Note ---
Cardiology SOAP Progress Note Subjective: Improved shortness of breath. Objective: I&O/Vital Signs 11/25/22 11/25/22 11/25/22 11/25/22 05:00 06:00 07:00 08:00 Pulse 89 110 B/P (MAP) 118/59 (78) 107/54 (71) 129/84 (99) Pulse Ox 97 92 O2 Delivery Nasal Cannula Nasal Cannula Nasal Cannula Nasal Cannula O2 Flow Rate 2.00 2.00 2.00 2.00 11/25/22 11/25/22 11/25/22 11/25/22 08:00 08:20 08:49 09:00 Temp 36.2 Pulse 111 105 Resp 15 B/P (MAP) 117/78 (91) Pulse Ox 98 98 O2 Delivery Nasal Cannula Nasal Cannula O2 Flow Rate 2.00 2.00 11/25/22 11/25/22 11/25/22 11/25/22 09:15 09:23 10:00 10:29 Pulse 103 Resp 22 B/P (MAP) 124/88 (100) Pulse Ox 100 92 89 O2 Delivery Nasal Cannula Room Air Room Air Room Air O2 Flow Rate 2.00 0.00 11/25/22 11/25/22 11/25/22 11/25/22 11:00 12:00 12:00 12:00 Pulse 101 102 Resp 17 18 B/P (MAP) 118/64 (82) 113/57 (75) Pulse Ox 96 88 94 O2 Delivery Room Air Room Air Nasal Cannula O2 Flow Rate 2.00 11/25/22 11/25/22 11/25/22 11/25/22 12:03 12:03 12:03 12:43 Pulse 102 Pulse Ox 92 88 O2 Delivery Nasal Cannula Nasal Cannula Room Air O2 Flow Rate 2.00 2.00 0.00 11/25/22 11/25/22 11/25/22 11/25/22 13:00 14:00 15:00 16:00 Temp 36.4 Pulse 81 91 89 B/P (MAP) 91/56 (68) 104/65 (78) 153/58 (89) Pulse Ox 100 96 96 O2 Delivery Nasal Cannula Nasal Cannula Nasal Cannula O2 Flow Rate 2.00 2.00 2.00 11/25/22 16:00 Pulse 84 B/P (MAP) Pulse Ox 93 O2 Delivery Nasal Cannula O2 Flow Rate 2.00 11/25/22 00:00 Intake Total 780 ml Output Total 1150 ml Balance -370 ml Constitutional: AAO x 3 Respiratory: lungs clear to auscultation Cardiovascular: regular rate-rhythm, S1 and S2 Neurologic/Psychiatric: no motor/sensory deficits, alert, normal mood/affect, oriented x 3 Skin: normal color, warm/dry Results/Procedures: Labs Laboratory Tests 11/24/22 16:32: Glucometer 252H 11/24/22 20:20: Glucometer 270H 11/25/22 03:57: White Blood Count 10.4, Red Blood Count 3.68L, Hemoglobin 8.3L, Hematocrit 28L, Mean Corpuscular Volume 75L, Mean Corpuscular Hemoglobin 23L, Mean Corpuscular Hemoglobin Concent 30L, Red Cell Distribution Width 18.1H, Platelet Count 334, Mean Platelet Volume 10.4, Immature Granulocyte % (Auto) 0, Neutrophils (%) (Auto) 47, Lymphocytes (%) (Auto) 43, Monocytes (%) (Auto) 8, Eosinophils (%) (Auto) 2, Basophils (%) (Auto) 1, Neutrophils # (Auto) 4.8, Lymphocytes # (Auto) 4.4H, Monocytes # (Auto) 0.8, Eosinophils # (Auto) 0.2, Basophils # (Auto) 0.1, Immature Granulocyte # (Auto) 0.0, Prothrombin Time 27.5H, INR Comment 2.6H, So dium Level 138, Potassium Level 4.1, Chloride Level 102, Carbon Dioxide Level 27, Anion Gap 9, Blood Urea Nitrogen 14, Creatinine 0.76, Estimat Glomerular Filtration Rate 83, BUN/Creatinine Ratio 18, Glucose Level 172H, Calcium Level 8 .6, Magnesium Level 2.2, Troponin I 0.730*H 11/25/22 10:53: Glucometer 310H 11/25/22 14:57: Triglycerides Level 94, Cholesterol Level 211H, LDL Cholesterol Direct 147H, VLDL Cholesterol 19, HDL Cholesterol 58 11/25/22 15:34: Glucometer 127H Microbiology 11/24/22 MRSA Screen - Final, Complete MRSA not isolated A/P: Assessment/Dx: Acute respiratory failure, Acute on chronic diastolic heart failure, Pulmonary embolism, Severe mitral regurgitation Positive troponin Plan: Acute diastolic congestive heart failure could be secondary to severe mitral regurgitation. Continue Lasix. Positive troponin. No chest pain. Could be secondary to acute congestive heart failure. However ischemia cannot be ruled out. Will give a couple of doses of Lovenox. Once patient is better pulmonary moise, may require a transesophageal echocardiogram to assess the severity of the mitral regurgitation. If surgery is recommended for mitral regurgitation, patient will require preoperative coronary angiography. We will try to get old records of all cardiac work-up from [facility]. History of pulmonary embolism. On warfarin. INR 2.1. Dr. Reyna to follow on Sunday. Focused Exam Lactate Level 11/24/22 07:03: Lactic Acid Level 2.81*H 11/24/22 08:50: Lactic Acid Level 3.06*H 11/24/22 11:05: Lactic Acid Level 2.54*H Carlos GONZALEZ MD Nov 25, 2022 16:27
[2022-11-25] MEDS: DULoxetine 30 MG CAPSULE PO SCH (20:45)
[2022-11-25] MEDS: warFARin 1 MG (COUMADIN) TAB PO SCH (20:45)
[2022-11-25] MEDS: warFARin 10 MG (COUMADIN) TAB PO SCH (20:45)
[2022-11-25] MEDS: ASPIRIN enteric coated 81MG TABLET PO SCH (20:45)
[2022-11-26] MEDS: ENOXAPARIN 100 MG/1 ML SYRINGE SC SCH ×2 (02:32→14:54)
[2022-11-26 04:21] LABS: BASOPHILS # (AUTO) 0.1 10^3/uL (0.0-0.1); BASOPHILS % (AUTO) 1 % (0-10); EOSINOPHILS # (AUTO) 0.3 10^3/uL (0.0-0.3); EOSINOPHILS % (AUTO) 2 % (0-10); HEMATOCRIT 28 % (35-52); HEMOGLOBIN 8.1 g/dL (11.5-16.0); LYMPHOCYTES # (AUTO) 5.5 10^3/uL (1.0-4.0); LYMPHOCYTES % (AUTO) 44 % (12-44); MEAN CORPUSCULAR HEMOGLOBIN 22 pg (25-34); MEAN CORPUSCULAR HGB CONC 29 g/dL (32-36); MEAN CORPUSCULAR VOLUME 75 fL (80-99); MEAN PLATELET VOLUME 10.4 fL (9.0-12.2); MONOCYTES % (AUTO) 8 % (0-12); NEUTROPHILS # (AUTO) 5.5 10^3/uL (1.8-7.8); NEUTROPHILS % (AUTO) 44 % (42-75); PLATELET COUNT 343 10^3/uL (130-400); WHITE BLOOD COUNT 12.4 10^3/uL (4.3-11.0)
[2022-11-26 04:36] LABS: CALCIUM 8.6 MG/DL (8.5-10.1); CREATININE SERUM 0.86 MG/DL (0.60-1.30); MAGNESIUM 2.1 MG/DL (1.6-2.4); PHOSPHORUS 3.5 MG/DL (2.3-4.7); POTASSIUM 4.2 MMOL/L (3.6-5.0)
[2022-11-26] MEDS: MAGNESIUM 1 GM/100 ML IVPB 100 ML IV SCH (05:26)
[2022-11-26] MEDS: POTASSIUM CL 10MEQ/50ML IVPB 50 ML IV SCH (05:26)
[2022-11-26] MEDS: POTASSIUM CHLORIDE 20 MEQ TABLET PO SCH ×2 (05:26→06:10)
[2022-11-26] MEDS: inSUlin ASPART 1 UNIT/0.01 ML (PER UNIT) SC SCH ×4 (05:26→20:59)
[2022-11-26] MEDS: CATHETER FLUSH 10 ML SYR IVP SCH ×3 (06:10→20:59)
[2022-11-26] MEDS: glipiZIDE 5 MG TABLET PO SCH (06:10)
[2022-11-26] MEDS: FUROSEMIDE INJECTION 40 MG/4 ML VIAL IV SCH (07:11)
[2022-11-26] MEDS: RT-ALBUTEROL SULF 2.5 MG/3 ML PRE-MIX VIAL INH SCH ×2 (08:10→21:22)
--- NOTE | 2022-11-26 09:36 | Tele-ICU Progress Note ---
Subjective Date Seen by a Provider: Nov 26, 2022 Time Seen by a Provider: 09:36 Subjective/Events-last exam Tele-ICU Physician , Progress Note ) Service provided via interactive audio and video telecommunications [employer] s norbertte to a patient admitted to ICU bed in [facility]. Patient is seen today due to persistent need of ICU care Available chart/ vitals / labs / Images reviewed Video assessment done using teleICU camera, rest of exam as per RN She is a 72-year-old female with past medical history of hypertension, type 2 diabetes mellitus, congestive heart failure and pulmonary embolism on Coumadin. She presented to the emergency room with shortness of breath and found to be in respiratory distress hence she is put on BiPAP. Usually she wears oxygen 2 L of nasal cannula. An echocardiogram done revealed severe mitral regurgitation. She has been diuresed since then and now she is feeling much better currently she is on room air. Impression 1. Congestive heart failure acute onset 2. History of pulmonary embolism 3. Severe mitral regurgitation. 4. Acute respiratory failure due to hypoxia Recommendations 1. Diuretic therapy per cardiology 2. Continue Coumadin therapy 3. Reevaluate for need for home oxygen. Coordination of care with primary care and bedside consultants. I am remotely monitoring this patient from Tele icu station in [place]. I am unable to do the bedside exam, and history/physical and pertinent information is taken from other notes in the computer and bedside staff. Certain portions of this document may have been dictated utilizing voice r ecognition technology such as [employer]. Inherent to this technology, typographical and grammatical errors may exist. As much as I am diligent to identify and correct to these mistakes, some errors may remain in the document. Critical care time devoted to this patient today is approximately is--15 minutes Sepsis Event Evaluation Height, Weight, BMI Height: '" Weight: lbs. oz. kg; 37.96 BMI Method: Focused Exam Lactate Level 11/24/22 07:03: Lactic Acid Level 2.81*H 11/24/22 08:50: Lactic Acid Level 3.06*H 11/24/22 11:05: Lactic Acid Level 2.54*H Exam Exam Patient acknowledged, consented, and participated in this virtual visit which was conducted using real time audio/video Vital Signs Date Time Temp Pulse Resp B/P (MAP) Pulse Ox O2 Delivery O2 Flow Rate FiO2 11/26/22 09:00 90 24 105/57 (68) 93 Nasal Cannula 2.00 11/26/22 08:06 94 Nasal Cannula 1.00 11/26/22 08:00 88 126/69 (100) 99 Nasal Cannula 2.00 11/26/22 07:52 37.0 11/26/22 07:30 100 Nasal Cannula 2.00 11/26/22 07:00 77 12 106/74 (82) 97 Nasal Cannula 2.00 11/26/22 07:00 79 11/26/22 06:13 81 11 95/50 (65) 96 Nasal Cannula 2.00 11/26/22 05:00 83 13 97/50 (66) 97 Nasal Cannula 2.00 11/26/22 04:13 97 Nasal Cannula 2.00 11/26/22 04:00 79 96/57 (70) 97 Nasal Cannula 2.00 11/26/22 04:00 36.5 11/26/22 03:00 82 90/49 (63) 97 Nasal Cannula 2.00 11/26/22 02:00 80 98/54 (69) 97 Nasal Cannula 2.00 11/26/22 01:00 87 11/26/22 01:00 84 87/44 (58) 95 Nasal Cannula 2.00 11/26/22 00:00 85 5 93/48 (63) 98 Nasal Cannula 2.00 11/26/22 00:00 96 Nasal Cannula 2.00 11/26/22 00:00 36.4 11/25/22 23:00 99 94/53 (67) Nasal Cannula 2.00 11/25/22 22:00 90 24 105/49 (67) 97 Nasal Cannula 2.00 11/25/22 21:39 96 Nasal Cannula 2.00 11/25/22 21:00 75 15 96/81 (86) 98 Nasal Cannula 2.00 11/25/22 20:00 36.2 11/25/22 20:00 98 Nasal Cannula 2.00 11/25/22 19:00 81 11/25/22 19:00 77 91/49 (63) 97 Nasal Cannula 2.00 11/25/22 18:00 75 94/79 (84) 93 Nasal Cannula 2.00 11/25/22 17:00 78 33 92/49 (63) 98 Nasal Cannula 2.00 11/25/22 16:00 94 Nasal Cannula 2.00 11/25/22 16:00 84 93 Nasal Cannula 2.00 11/25/22 16:00 36.4 11/25/22 15:00 89 153/58 (89) 96 Nasal Cannula 2.00 11/25/22 14:00 91 104/65 (78) 96 Nasal Cannula 2.00 11/25/22 13:00 81 91/56 (68) 100 Nasal Cannula 2.00 11/25/22 12:43 102 11/25/22 12:03 88 Room Air 0.00 11/25/22 12:03 Nasal Cannula 2.00 11/25/22 12:03 92 Nasal Cannula 2.00 11/25/22 12:00 94 Nasal Cannula 2.00 11/25/22 12:00 88 Room Air 11/25/22 12:00 102 18 113/57 (75) 11/25/22 11:00 101 17 118/64 (82) 96 Room Air 11/25/22 10:29 89 Room Air 11/25/22 10:00 103 22 124/88 (100) 92 Room Air I & O 11/26/22 07:00 Intake Total 1550 ml Output Total 2850 ml Balance -1300 ml Height & Weight Height: '" Weight: lbs. oz. kg; 37.96 BMI Method: General Appearance: No Apparent Distress, Obese HEENT: PERRL/EOMI, Pharynx Normal Neck: Normal Inspection, Supple Respiratory: Lungs Clear, No Respiratory Distress Cardiovascular: Regular Rate, Rhythm, No Murmur Capillary Refill: Less Than 3 Seconds Gastrointestinal: normal bowel sounds, non tender, soft Extremity: Normal Inspection, No Pedal Edema Neurologic/Psychiatric: Alert, Normal Mood/Affect Skin: Normal Color, Warm/Dry Results Lab Laboratory Tests 11/25/22 03:57 11/26/22 03:59 ELSA BENITEZ MD Nov 26, 2022 09:36
[2022-11-26] MEDS: SENNOSIDES 8.6 MG (SENOKOT) TAB PO SCH ×3 (09:49→20:57)
[2022-11-26] MEDS: ALLOPURINOL 100 MG TABLET PO SCH (09:50)
[2022-11-26] MEDS: morphine EXTENDED RELEASE 15 MG TABLET PO SCH ×2 (09:50→20:58)
[2022-11-26] MEDS: GABAPENTIN 600 MG TABLET PO SCH ×2 (09:50→20:58)
[2022-11-26] MEDS: DOCUSATE SODIUM 100 MG CAPSULE PO SCH ×3 (09:50→20:57)
[2022-11-26] MEDS: oxyCODONE IMMEDIATE RELEASE 5 MG TABLET PO SCH ×2 (09:50→20:58)
--- NOTE | 2022-11-26 13:38 | Progress Note - Hospitalist ---
Subjective HPI/CC On Admission Date Seen by Provider: Nov 26, 2022 Time Seen by Provider: 10:20 Stacey Brown is a 72 year old female with PMH HTN, T2DM, CHF, history of PE, gout, obesity, who presented with shortness of breath. This was appartently sudden onset last night. She denies fevers and chills. She denies cough. She denies chest pain. She denies nausea and vomiting. She denies abdominal pain. She reports orthopnea and PND. She has been compliant with her coumadin. She normally wears 2 L oxygen at night. She was placed on BiPAP. Upon my exam, her respiratory distress has resolved. She has no complaints. Subjective/Events-last exam She is feeling well. She is sitting in her chair. She denies shortness of breath. She denies chest pain. Focused Exam Lactate Level 11/24/22 07:03: Lactic Acid Level 2.81*H 11/24/22 08:50: Lactic Acid Level 3.06*H 11/24/22 11:05: Lactic Acid Level 2.54*H Objective Exam Vital Signs Vital Signs Date Time Temp Pulse Resp B/P (MAP) Pulse Ox O2 Delivery O2 Flow Rate FiO2 11/26/22 11:55 36.3 85 18 97/59 (72) 98 Nasal Cannula 11/26/22 11:11 1.00 11/24/22 16:26 24 Capillary Refill : Less Than 3 Seconds General Appearance: No Apparent Distress, Obese Respiratory: Lungs Clear, No Respiratory Distress Cardiovascular: Regular Rate, Rhythm, No Murmur Gastrointestinal: Normal Bowel Sounds, Soft Extremity: Normal Inspection, Pedal Edema Neurologic/Psychiatric: Alert, Normal Mood/Affect Skin: Normal Color, Warm/Dry Results/Procedures Lab Laboratory Tests 11/26/22 03:59 Patient resulted labs reviewed. Imaging: Reviewed Imaging Report Assessment/Plan Assessment and Plan Assess & Plan/Chief Complaint Acute on chronic respiratory failure with hypoxia Acute pulmonary edema Acute on chronic HFpEF NSTEMI CXR with pulmonary edema Supplemental oxygen as needed IV Lasix Metoprolol Cardiology following Troponin elevated, planning for left heart cath Sunday ASA and Lipitor History of PE Coumadin Microcytic anemia Hgb 8.1, stable Iron studies pending HTN Gout Chronic pain Continue home meds T2DM Sliding scale insulin Diagnosis/Problems Diagnosis/Problems (1) Acute on chronic respiratory failure with hypoxia Status: Acute (2) Acute pulmonary edema Status: Acute (3) Acute on chronic heart failure with preserved ejection fraction (HFpEF) Status: Acute (4) History of pulmonary embolism Status: Chronic (5) HTN (hypertension) Status: Chronic (6) T2DM (type 2 diabetes mellitus) Status: Chronic Qualifiers: Diabetes mellitus nursing home insulin use: without nursing home use (7) Gout Status: Chronic (8) Obesity Status: Chronic (9) Nocturnal hypoxia Status: Chronic (10) NSTEMI (non-ST elevation myocardial infarction) Status: Acute DEBORAH NIELSON MD Nov 26, 2022 13:38
--- NOTE | 2022-11-26 16:17 | Cardiology Progress Note ---
Cardiology SOAP Progress Note Subjective: Comfortable Objective: I&O/Vital Signs 11/26/22 11/26/22 11/26/22 11/26/22 05:00 06:13 07:00 07:00 Pulse 83 81 79 77 Resp 13 11 12 B/P (MAP) 97/50 (66) 95/50 (65) 106/74 (82) Pulse Ox 97 96 97 O2 Delivery Nasal Cannula Nasal Cannula Nasal Cannula O2 Flow Rate 2.00 2.00 2.00 11/26/22 11/26/22 11/26/22 11/26/22 07:30 07:52 08:00 08:06 Temp 37.0 Pulse 88 B/P (MAP) 126/69 (100) Pulse Ox 100 99 94 O2 Delivery Nasal Cannula Nasal Cannula Nasal Cannula O2 Flow Rate 2.00 2.00 1.00 11/26/22 11/26/22 11/26/22 11/26/22 09:00 10:00 11:11 11:55 Temp 36.3 Pulse 90 100 85 Resp 24 22 18 B/P (MAP) 105/57 (68) 104/70 (72) 97/59 (72) Pulse Ox 93 100 100 98 O2 Delivery Nasal Cannula Nasal Cannula Nasal Cannula Nasal Cannula O2 Flow Rate 2.00 2.00 1.00 11/26/22 00:00 Intake Total 1050 ml Output Total 725 ml Balance 325 ml Constitutional: AAO x 3 Respiratory: lungs clear to auscultation Cardiovascular: regular rate-rhythm, S1 and S2 Neurologic/Psychiatric: no motor/sensory deficits, alert, normal mood/affect, oriented x 3 Skin: normal color, warm/dry Results/Procedures: Labs Laboratory Tests 11/25/22 20:57: Glucometer 178H 11/26/22 03:59: White Blood Count 12.4H, Red Blood Count 3.72L, Hemoglobin 8.1L, Hematocrit 28L, Mean Corpuscular Volume 75L, Mean Corpuscular Hemoglobin 22L, Mean Corpuscular Hemoglobin Concent 29L, Red Cell Distribution Width 18.4H, Platelet Count 343, Mean Platelet Volume 10.4, Immature Granulocyte % (Auto) 0, Neutrophils (%) (Auto) 44, Lymphocytes (%) (Auto) 44, Monocytes (%) (Auto) 8, Eosinophils (%) (Auto) 2, Basophils (%) (Auto) 1, Neutrophils # (Auto) 5.5, Lymphocytes # (Auto) 5.5H, Monocytes # (Auto) 1.0, Eosinophils # (Auto) 0.3, Basophils # (Auto) 0.1, Immature Granulocyte # (Auto) 0.0, Sodium Level 134L, Potassium Level 4.2, Chloride Level 100, Carbon Dioxide Level 26, Anion Gap 8, Blood Urea Nitrogen 25H, Creatinine 0.86, Estimat Glomerular Filtration Rate 72, BUN/Creatinine Ratio 29, Glucose Level 175H, Calcium Level 8.6, Phosphorus Level 3.5, Magnesium Level 2.1 11/26/22 10:55: Glucometer 223H Microbiology 11/24/22 MRSA Screen - Final, Complete MRSA not isolated A/P: Assessment/Dx: Acute respiratory failure, Acute on chronic diastolic heart failure, Pulmonary embolism, Severe mitral regurgitation Positive troponin Plan: Acute diastolic congestive heart failure could be secondary to severe mitral regurgitation. Continue Lasix. Positive troponin. No chest pain. Could be secondary to acute congestive heart failure. However ischemia cannot be ruled out. Will give a couple of doses of Lovenox. Once patient is better pulmonary moise, may require a transesophageal echocardiogram to assess the severity of the mitral regurgitation. If surgery is recommended for mitral regurgitation, patient will require preoperative coronary angiography. We will try to get old records of all cardiac work-up from [facility]. History of pulmonary embolism. On warfarin. INR 2.1. Dr. Reyna to follow on Sunday. Focused Exam Lactate Level 11/24/22 07:03: Lactic Acid Level 2.81*H 11/24/22 08:50: Lactic Acid Level 3.06*H 11/24/22 11:05: Lactic Acid Level 2.54*H Carlos GONZALEZ MD Nov 26, 2022 16:17
[2022-11-26] MEDS: ASPIRIN enteric coated 81MG TABLET PO SCH (20:57)
[2022-11-26] MEDS: warFARin 10 MG (COUMADIN) TAB PO SCH (20:57)
[2022-11-26] MEDS: DULoxetine 30 MG CAPSULE PO SCH (20:58)
[2022-11-26] MEDS: LORazepam 0.5 MG TABLET PO PRN (20:58)
[2022-11-26] MEDS: warFARin 1 MG (COUMADIN) TAB PO SCH (20:58)
[2022-11-27] MEDS: ENOXAPARIN 100 MG/1 ML SYRINGE SC SCH (02:18)
[2022-11-27 06:00] LABS: BASOPHILS # (AUTO) 0.1 10^3/uL (0.0-0.1); BASOPHILS % (AUTO) 1 % (0-10); EOSINOPHILS # (AUTO) 0.3 10^3/uL (0.0-0.3); EOSINOPHILS % (AUTO) 3 % (0-10); HEMATOCRIT 27 % (35-52); LYMPHOCYTES # (AUTO) 4.5 10^3/uL (1.0-4.0); LYMPHOCYTES % (AUTO) 43 % (12-44); MEAN CORPUSCULAR HEMOGLOBIN 22 pg (25-34); MEAN CORPUSCULAR HGB CONC 29 g/dL (32-36); MEAN CORPUSCULAR VOLUME 76 fL (80-99); MEAN PLATELET VOLUME 10.5 fL (9.0-12.2); MONOCYTES # (AUTO) 0.8 10^3/uL (0.0-1.0); MONOCYTES % (AUTO) 8 % (0-12); NEUTROPHILS # (AUTO) 4.9 10^3/uL (1.8-7.8); NEUTROPHILS % (AUTO) 46 % (42-75); PLATELET COUNT 330 10^3/uL (130-400); WHITE BLOOD COUNT 10.6 10^3/uL (4.3-11.0)
[2022-11-27] MEDS: POTASSIUM CHLORIDE 20 MEQ TABLET PO SCH ×2 (06:17→06:46)
[2022-11-27] MEDS: POTASSIUM CL 10MEQ/50ML IVPB 50 ML IV SCH (06:17)
[2022-11-27] MEDS: MAGNESIUM 1 GM/100 ML IVPB 100 ML IV SCH (06:17)
[2022-11-27 06:18] LABS: INR 3.7 (0.8-1.4)
[2022-11-27 06:22] LABS: CALCIUM 8.5 MG/DL (8.5-10.1); CREATININE SERUM 0.83 MG/DL (0.60-1.30); MAGNESIUM 2.2 MG/DL (1.6-2.4); PHOSPHORUS 3.4 MG/DL (2.3-4.7); POTASSIUM 4.4 MMOL/L (3.6-5.0)
[2022-11-27] MEDS: inSUlin ASPART 1 UNIT/0.01 ML (PER UNIT) SC SCH ×4 (06:40→21:32)
[2022-11-27] MEDS: glipiZIDE 5 MG TABLET PO SCH (06:46)
[2022-11-27] MEDS: FUROSEMIDE INJECTION 40 MG/4 ML VIAL IV SCH (06:47)
[2022-11-27] MEDS: CATHETER FLUSH 10 ML SYR IVP SCH ×3 (06:47→21:33)
[2022-11-27] MEDS: RT-ALBUTEROL SULF 2.5 MG/3 ML PRE-MIX VIAL INH SCH ×2 (07:20→18:44)
[2022-11-27] MEDS: morphine EXTENDED RELEASE 15 MG TABLET PO SCH ×2 (08:36→21:30)
[2022-11-27] MEDS: ALLOPURINOL 100 MG TABLET PO SCH (08:36)
[2022-11-27] MEDS: GABAPENTIN 600 MG TABLET PO SCH ×2 (08:36→21:31)
[2022-11-27] MEDS: oxyCODONE IMMEDIATE RELEASE 5 MG TABLET PO SCH ×2 (08:36→21:30)
[2022-11-27] MEDS: DOCUSATE SODIUM 100 MG CAPSULE PO SCH ×2 (08:39→21:30)
[2022-11-27] MEDS: SENNOSIDES 8.6 MG (SENOKOT) TAB PO SCH ×2 (08:39→21:30)
--- NOTE | 2022-11-27 09:38 | Cardiology Progress Note ---
Subjective Date Seen by Provider: Nov 27, 2022 Time Seen by Provider: 09:36 Subjective/Events-last exam Patient was seen at bedside, laying down comfortably. Feeling better. No chest pain Review of Systems General: No Chills, No Night Sweats, No Fatigue, No Malaise, No Appetite, No Other HEENT: No Head Aches, No Visual Changes, No Eye Pain, No Ear Pain, No Dysphasi a, No Sinus Congestion, No Post Nasal Drip, No Sore Throat, No Other Pulmonary: No Dyspnea, No Cough, No Pleuritic Chest Pain, No Other Cardiovascular: No: Chest Pain, Palpitations, Orthopnea, Paroxysmal Noc. Dyspnea, Edema, Lt Headedness, Other Focused Exam Lactate Level 11/24/22 11:05: Lactic Acid Level 2.54*H Objective-Cardiology Exam Last Set of Vital Signs Vital Signs 11/24/22 11/27/22 16:26 08:33 Temp 35.8 Pulse 86 Resp 14 B/P (MAP) 107/58 (74) Pulse Ox 98 O2 Delivery Nasal Cannula O2 Flow Rate 2.00 FiO2 24 I&O Intake and Output 11/27/22 00:00 Intake Total 1470 ml Output Total 2025 ml Balance -555 ml Intake Oral 1470 ml Output Urine Total 2025 ml # Voids 5 General: Alert, Oriented X3, Cooperative HEENT: Atraumatic, PERRLA Neck: Supple, No JVD, No Thyromegaly Lungs: Clear to Auscultation, Normal Air Movement Heart: Regular Rate, Normal S1, Normal S2, Other (Systolic murmur at the left sternal border) Abdomen: Normal Bowel Sounds, Soft, No Tenderness, No Hepatosplenomegaly, No Masses Extremities: No Clubbing, No Cyanosis, No Edema, Normal Pulses, No Tenderness/Swelling Skin: No Rashes, No Breakdown, No Significant Lesion Neuro: Normal Speech, Normal Tone, Sensation Intact Psych/Mental Status: Mental Status NL, Mood NL Results Lab Laboratory Tests 11/27/22 05:36 A/P-Cardiology Admission Diagnosis Non-ST elevation myocardial infarction Coronary artery disease Severe mitral regurgitation Pulmonary embolism Assessment/Plan Non-ST elevation myocardial infarction, mild elevation in troponin Angina equivalent with shortness of breath Planning to proceed with cardiac catheterization Coronary artery disease, reporting that she had a cardiac catheterization over 10 years ago and she was told that she has a blockage in some arteries not amendable to intervention Planning to proceed with left heart catheterization Mitral regurgitation, reported to be severe on transthoracic echo We will need FRANCE in the future. History of pulmonary embolism. Maintained on oral anticoagulation HFpEF, compensated at this time Received Lasix. TORI GREENWOOD MD Nov 27, 2022 09:38
--- NOTE | 2022-11-27 09:40 | Cardiac Procedure Note-CS/ASA ---
Pre-Procedure Note Pre-Op Procedure Note Date of Available H&P: Nov 27, 2022 Date H&P Reviewed: Nov 27, 2022 Time H&P Reviewed: 09:40 History & Physical: H&P Reviewed, Patient Examed, No changes noted Pre-Operative Diagnosis: NSTMI Moderate Sedation PreProcedure Time 09:40 ASA Score 3 Airway Lungs Heart ASA score ASA 1: a normal healthy patient ASA 2: a patient with a mild systemic disease (mid diabetes, controlled hypertension, obesity ASA 3: a patient with a severe systemic disease that limits activity (angina, COPD, prior Myocardial infarction) ASA 4: a patient with an incapacitating disease that is a constant threat to life (CHF, renal failure) ASA 5: a moribund patient not expected to survive 24 hrs. (ruptured aneurysm) ASA 6: a declared brain- patient whose organs are being harvested. For emergent operations, add the letter E after the classification Mallampati Classification Grade 3 Sedation Plan Analgesia, Amnesia, Plan communicated to team members, Discussed options with patient/fam, Discussed risks with patient/fam The patient is an appropriate candidate to undergo the planned procedure, sedation, and anesthesia. The patient immediately re-assessed prior to indication. TORI GREENWOOD MD Nov 27, 2022 09:40
[2022-11-27] MEDS ORDERED: morphine INJ 4 MG/ML 1 ML (VIAL/SYRINGE) IVP PRN (10:45)
[2022-11-27] MEDS ORDERED: LIDOCAINE 1% INJ 20 ML VIAL ONE (10:56)
[2022-11-27] MEDS ORDERED: NS IV 1000 ML 1,000 ML ONE (10:56)
[2022-11-27] MEDS ORDERED: HEParin (CATH LAB) 2,000 ML IV ONE (10:56)
--- NOTE | 2022-11-27 11:13 | Progress Note - Hospitalist ---
AMBER MCDONALD 11/27/22 1113: Subjective HPI/CC On Admission Date Seen by Provider: Nov 27, 2022 Time Seen by Provider: 10:00 Stacey Brown is a 72 year old female with PMH HTN, T2DM, CHF, history of PE, gout, obesity, who presented with sudden onset of shortness of breath x 1 hour before going to the ED on 11/24. She reported having a panic attack with the onset of SOB. Pt normally takes 2L O2 at night. EMS reported crackles in all lung adame and put her on 4L of O2 and CPAP with 84% O2. They also started 80 mg Lasix. A chest x-ray was perfomed showing diffuse pulmonary edema indicating acute pulmonary failure. EKG showed sinus tachycardia with some suspicion for an anterior CA. An echo showed severe mitral regurgitation indicating acute on chronic diastolic congestive heart failure with a LV EF of 55-60%. Her lactic acid was elevated at 6.91, with increased PT, PTT, and INR (pt on coumadin), elevated glucose at 342, and elevated BNP at 304.9. Her troponin at the time of admission was normal, but increased to 0.730 on 11/25, indicating a NSTEMI. Dr. Reyna is taking the patient to the recyclable materials collector for further analysis. Pt reports she had a cath 10 years ago which showed blockages not amenable to PCI. She also reports being diagnosed with fibromyalgia and sciatica on her left side with current pain radiating down her left leg and less relief from her current pain medication regimen. Labs also indicate microcytic anemia x 1 month and patient reports feeling especially fatigued for the past 2-3 days. She has an ulcer on her buttocks that has not healed for the past two years after being bedridden with COVID for 3 weeks. Review of Systems General: Fatigue Cardiovascular: No: Chest Pain, Palpitations Gastrointestinal: No: Nausea, Vomiting, Abdominal Pain, Melena Musculoskeletal: leg pain Focused Exam Sepsis Stage: Ruled Out Reason for ruling out sepsis: does not meet SIRS criteria Lactate Level Objective Exam Vital Signs Vital Signs Date Time Temp Pulse Resp B/P (MAP) Pulse Ox O2 Delivery O2 Flow Rate FiO2 11/27/22 08:33 35.8 86 14 107/58 (74) 98 Nasal Cannula 2.00 11/24/22 16:26 24 Capillary Refill : Less Than 3 Seconds General Appearance: No Apparent Distress HEENT: PERRL/EOMI Respiratory: No Accessory Muscle Use, No Respiratory Distress, Crackles Cardiovascular: Regular Rate, Rhythm, No Gallop, No JVD Extremity: No Calf Tenderness Neurologic/Psychiatric: Alert, Oriented x3, Normal Mood/Affect Skin: Erythema (around ulcer 1 cm on gluteal cleft) Results/Procedures Lab Laboratory Tests 11/27/22 05:36 Patient resulted labs reviewed. Imaging: Reviewed Imaging Report Assessment/Plan Assessment and Plan Assess & Plan/Chief Complaint Acute on chronic respiratory failure with hypoxia Acute pulmonary edema Acute on chronic HFpEF NSTEMI CXR with pulmonary edema Supplemental oxygen as needed IV Lasix Metoprolol Cardiology following Troponin elevated, planning for left heart cath Sunday ASA and Lipitor defer to Cardio for Lovenox History of PE Coumadin Microcytic anemia Hgb 8.1, stable follow up with Dr. Curiel recommend colonoscopy HTN Gout Chronic pain Continue home meds T2DM Sliding scale insulin Ulcer pt to be seen by wound care after cath Diagnosis/Problems Diagnosis/Problems (1) Acute on chronic respiratory failure with hypoxia Status: Acute (2) Acute pulmonary edema Status: Acute (3) Acute on chronic heart failure with preserved ejection fraction (HFpEF) Status: Acute (4) NSTEMI (non-ST elevation myocardial infarction) Status: Acute (5) Gout Status: Chronic (6) T2DM (type 2 diabetes mellitus) Status: Chronic Qualifiers: (7) HTN (hypertension) Status: Chronic (8) Ulcer Status: Chronic SPIKE GARCIA MD 11/27/22 1302: Assessment/Plan Assessment and Plan Assess & Plan/Chief Complaint Patient reports feeling better and breathing better today. Spoke with Dr Reyna and planning for cath today. Pt does have systolic murmur. Will need FRANCE as well to evaluate mitral valve. Pending results of cath will have wound care see patient.Patient is very concerned about post procedure pain when she has to lie on her back. She is on chronic narcotics so added IV morphine for post procedure pain. Supervisory-Addendum Brief Verification & Attestation Participated in pt care: history, MDM, physical Personally performed: exam, history, MDM, supervision of care Care discussed with: Medical Student Procedures: n/a Results interpretation: Verified all documentation Verification and Attestation of Medical Student E/M Service A medical student performed and documented this service in my presence. I revie wed and verified all information documented by the medical student and made modifications to such information, when appropriate. I personally performed the physical exam and medical decision making. Spike Garcia, Nov 27, 2022,12:57 AMBER MCDONALD Nov 27, 2022 11:13 SPIKE GARCIA MD Nov 27, 2022 13:02
[2022-11-27] MEDS ORDERED: fentaNYL INJECTION 100 MCG/2 ML VIAL ONE (11:15)
[2022-11-27] MEDS ORDERED: MIDAZOLAM INJ 5 MG/5 ML VIAL ONE (11:15)
[2022-11-27] MEDS ORDERED: HEParin 1000 UNIT/ML (10ML VIAL) FOR BOLUS ONE (11:15)
[2022-11-27] MEDS ORDERED: VERAPAMIL 5 MG/2 ML (CALAN) VIAL IV ONE (11:15)
[2022-11-27] MEDS ORDERED: NITRO DRIP 25000 MCG/D5W 250 ML IV ONE (11:15)
--- NOTE | 2022-11-27 12:20 | Cardiac Cath Report ---
Cardiac Cath Report Physician (s)/It Technical Architect (s) Physician TORI GREENWOOD MD Pre-Procedure Diagnosis Pre-Procedure Diagnosis: NSTMI Post-Procedure Note Procedure Start Date: Nov 27, 2022 Name of Procedure: Left heart catheterization Findings/Procedure Note PROCEDURE NOTE: 72-year-old lady admitted with non-ST elevation myocardial infarction, moderate to severe mitral regurgitation Scheduled for cardiac catheterization possible PTCA. After explaining the procedure to the patient, all pros and cons were explained, all questions were answered. The patient signed the consent and then she was placed in the cardiac catheterization laboratory. Groin was prepped in SL fashion local anesthesia was used. Sheath placed in the right radial artery, I had difficulty advancing the wire through the brachial artery due to a loop in the brachial artery, I used baby J-wire and advanced [place] catheter, advanced it to the left ventricular cavity pressure was measured pullback LV to aorta was done, engage the right coronary artery and angiogram was done I was unable to engage the left coronary artery, I exchanged to a Juan Ramon left catheter without success then I was able to engage with EBU guide. Patient was having signif icant discomfort in her arm. I thought about advancing a wire in the obtuse marginal branch, patient received a total of 5000 units of heparin. The guide could not sit well on the left main that has an ostial lesion. I decided to abort and not to attempt any intervention. At the end of the procedure the sheath was removed. Vascular band was used FINDINGS: Hemodynamics LV 91/23, end-diastolic pressure of 23 Aorta 88/54 mean of 87 ANATOMY: Left Main has ostial lesion up to 60 to 70%. Left Anterior Descending is tortuous with moderate disease nonobstructive disease Left Circumflex has 99% lesion in the obtuse marginal branch. Right Coronary Artery is moderate in size, occluded right coronary artery with collaterals from the left filling the right PDA, dominant artery LV Gram was not done, pressure was measured CONCLUSION: Ostial left main coronary artery stenosis with 60 to 70%, 99% proximal obtuse marginal branch, occluded distal right coronary artery with collaterals filling the right PDA from the left Elevated left ventricular end-diastolic pressure DISCUSSION AND RECOMMENDATION: Patient has ostial left main with obtuse marginal branch disease in addition to severe mitral regurgitation, I will evaluate FRANCE then consider referral for CABG Anesthesia Type: Conscious Sedation Estimated blood loss (mL): 25 ml Contrast Amount: 68 ml Post-Procedure Diagnosis Post-operative diagnosis: Non-ST elevation myocardial infarction Acute respiratory failure Pulmonary edema Acute on chronic congestive heart failure with left ventricular diastolic dysfunction Severe mitral regurgitation OTRI GREENWOOD MD Nov 27, 2022 12:20
[2022-11-27] MEDS: NS IV 1000 ML 1,000 ML IV SCH ×2 (12:40→22:15)
[2022-11-27] MEDS: DULoxetine 30 MG CAPSULE PO SCH (21:30)
[2022-11-27] MEDS: ASPIRIN enteric coated 81MG TABLET PO SCH (21:30)
[2022-11-28] MEDS: NS IV 1000 ML 1,000 ML IV SCH (02:44)
[2022-11-28 04:32] LABS: BASOPHILS # (AUTO) 0.1 10^3/uL (0.0-0.1); BASOPHILS % (AUTO) 1 % (0-10); EOSINOPHILS # (AUTO) 0.3 10^3/uL (0.0-0.3); EOSINOPHILS % (AUTO) 3 % (0-10); HEMATOCRIT 27 % (35-52); HEMOGLOBIN 7.9 g/dL (11.5-16.0); LYMPHOCYTES % (AUTO) 40 % (12-44); MEAN CORPUSCULAR HEMOGLOBIN 22 pg (25-34); MEAN CORPUSCULAR HGB CONC 29 g/dL (32-36); MEAN CORPUSCULAR VOLUME 76 fL (80-99); MEAN PLATELET VOLUME 9.7 fL (9.0-12.2); MONOCYTES # (AUTO) 0.9 10^3/uL (0.0-1.0); MONOCYTES % (AUTO) 9 % (0-12); NEUTROPHILS # (AUTO) 4.6 10^3/uL (1.8-7.8); NEUTROPHILS % (AUTO) 47 % (42-75); PLATELET COUNT 315 10^3/uL (130-400); WHITE BLOOD COUNT 9.9 10^3/uL (4.3-11.0)
[2022-11-28 04:53] LABS: CALCIUM 8.3 MG/DL (8.5-10.1); CREATININE SERUM 0.81 MG/DL (0.60-1.30); MAGNESIUM 2.1 MG/DL (1.6-2.4); PHOSPHORUS 3.2 MG/DL (2.3-4.7); POTASSIUM 4.8 MMOL/L (3.6-5.0)
[2022-11-28] MEDS: POTASSIUM CL 10MEQ/50ML IVPB 50 ML IV SCH (05:31)
[2022-11-28] MEDS: MAGNESIUM 1 GM/100 ML IVPB 100 ML IV SCH (05:31)
[2022-11-28] MEDS: inSUlin ASPART 1 UNIT/0.01 ML (PER UNIT) SC SCH ×3 (05:32→16:11)
[2022-11-28] MEDS: POTASSIUM CHLORIDE 20 MEQ TABLET PO SCH ×2 (05:32→06:22)
[2022-11-28] MEDS: CATHETER FLUSH 10 ML SYR IVP SCH ×2 (05:32→16:11)
[2022-11-28] MEDS: glipiZIDE 5 MG TABLET PO SCH (05:33)
[2022-11-28] MEDS ORDERED: MIDAZOLAM INJ 5 MG/5 ML VIAL ONE (07:34)
[2022-11-28] MEDS ORDERED: fentaNYL INJECTION 100 MCG/2 ML VIAL ONE (07:34)
[2022-11-28] MEDS ORDERED: LIDOCAINE 2% VISCOUS 15 ML UDC ONE (07:50)
--- NOTE | 2022-11-28 08:31 | Cardiac Procedure Note-CS/ASA ---
Pre-Procedure Note Pre-Op Procedure Note Date of Available H&P: Nov 28, 2022 Date H&P Reviewed: Nov 28, 2022 Time H&P Reviewed: 08:30 History & Physical: H&P Reviewed, Patient Examed, No changes noted Pre-Operative Diagnosis: NSTMI, Mitral Regurg Moderate Sedation PreProcedure Time 08:31 ASA Score 3 Airway Lungs Heart ASA score ASA 1: a normal healthy patient ASA 2: a patient with a mild systemic disease (mid diabetes, controlled hypertension, obesity ASA 3: a patient with a severe systemic disease that limits activity (angina, COPD, prior Myocardial infarction) ASA 4: a patient with an incapacitating disease that is a constant threat to life (CHF, renal failure) ASA 5: a moribund patient not expected to survive 24 hrs. (ruptured aneurysm) ASA 6: a declared brain- patient whose organs are being harvested. For emergent operations, add the letter E after the classification Mallampati Classification Grade 3 Sedation Plan Analgesia, Amnesia, Plan communicated to team members, Discussed options with patient/fam, Discussed risks with patient/fam The patient is an appropriate candidate to undergo the planned procedure, sedation, and anesthesia. The patient immediately re-assessed prior to indication. TORI GREENWOOD MD Nov 28, 2022 08:31
--- NOTE | 2022-11-28 08:33 | Cardiology Progress Note ---
Subjective Date Seen by Provider: Nov 28, 2022 Time Seen by Provider: 08:31 Subjective/Events-last exam Patient was seen at bedside laying down comfortably, no new complaint Review of Systems General: No Chills, No Night Sweats, No Fatigue, No Malaise, No Appetite, No Other HEENT: No Head Aches, No Visual Changes, No Eye Pain, No Ear Pain, No Dysphasia, No Sinus Congestion, No Post Nasal Drip, No Sore Throat, No Other Pulmonary: No Dyspnea, No Cough, No Pleuritic Chest Pain, No Other Cardiovascular: No: Chest Pain, Palpitations, Orthopnea, Paroxysmal Noc. Dyspnea, Edema, Lt Headedness, Other Objective-Cardiology Exam Last Set of Vital Signs Vital Signs 11/27/22 11/27/22 11/28/22 11/28/22 20:28 20:55 05:14 08:00 Temp 36.3 Pulse 114 Resp 22 B/P (MAP) 108/66 (80) Pulse Ox 97 O2 Delivery Room Air O2 Flow Rate 2.00 FiO2 28 I&O Intake and Output 11/28/22 00:00 Intake Total 645 ml Balance 645 ml Intake Oral 645 ml # Voids 8 General: Alert, Oriented X3, Cooperative HEENT: Atraumatic, PERRLA Neck: Supple, No JVD, No Thyromegaly Lungs: Clear to Auscultation, Normal Air Movement Heart: Regular Rate, Normal S1, Normal S2, Other (Systolic murmur at the left sternal border) Abdomen: Normal Bowel Sounds, Soft, No Tenderness, No Hepatosplenomegaly, No Masses Extremities: No Clubbing, No Cyanosis, No Edema, Normal Pulses, No Tenderness/Swelling Skin: No Rashes, No Breakdown, No Significant Lesion Neuro: Normal Speech, Normal Tone, Sensation Intact Psych/Mental Status: Mental Status NL, Mood NL Results Lab Laboratory Tests 11/28/22 04:17 11/28/22 04:18 A/P-Cardiology Admission Diagnosis Non-ST elevation myocardial infarction Coronary artery disease Severe mitral regurgitation Pulmonary embolism Assessment/Plan Non-ST elevation myocardial infarction, mild elevation in troponin Angina equivalent with shortness of breath Cardiac catheterization was done showing severe coronary artery disease. Coronary artery disease, reporting that she had a cardiac catheterization over 10 years ago and she was told that she has a blockage in some arteries not amendable to intervention Repeat cardiac catheterization was done on November 27, 2022 showing total occlusion of the distal right coronary artery receiving collaterals from the left system, calcified left main with ostial 60 to 70% stenosis, proximal first obtuse marginal artery severe stenosis. Mild disease in the LAD. Depend on the results of the FRANCE we can consider referral for CABG or high risk intervention FRANCE was done showing ejection fraction 40%, severe mitral regurgitation, flow reversal in the pulmonic veins. Planning to arrange for evaluation for CABG with mitral valve repair Mitral regurgitation, reported to be severe on transthoracic echo Planning for FR[place] today History of pulmonary embolism. Maintained on oral anticoagulation HFpEF, compensated at this time Maintained on Lasix TORI GREENWOOD MD Nov 28, 2022 08:33
[2022-11-28 08:40] LABS: INR 3.1 (0.8-1.4); PROTHROMBIN TIME PATIENT 31.4 SEC (12.2-14.7)
[2022-11-28] MEDS ORDERED: LIDOCAINE 2% VISCOUS 15 ML UDC PO ONE (09:00)
--- NOTE | 2022-11-28 09:14 | Discharge Summary ---
Diagnosis/Chief Complaint Date of Admission Nov 24, 2022 at 02:50 Date of Discharge Admission Diagnosis Acute on chronic respiratory failure with hypoxia Primary Care Ben Curiel MD Discharge Diagnosis (1) Acute on chronic respiratory failure with hypoxia Status: Acute (2) Acute pulmonary edema Status: Acute (3) Acute on chronic heart failure with preserved ejection fraction (HFpEF) Status: Acute (4) NSTEMI (non-ST elevation myocardial infarction) Status: Acute (5) Gout Status: Chronic (6) T2DM (type 2 diabetes mellitus) Status: Chronic (7) HTN (hypertension) Status: Chronic (8) Ulcer Status: Chronic Discharge Summary Discharge Physical Exam Allergies: Coded Allergies: Penicillins (Verified Allergy, Unknown, 09/17/20) Vitals & I&Os Vital Signs Date Time Temp Pulse Resp B/P (MAP) Pulse Ox O2 Delivery O2 Flow Rate FiO2 11/28/22 12:00 35.9 83 20 114/55 (74) 97 Nasal Cannula 1.00 11/27/22 20:55 28 General Appearance: No Apparent Distress, Obese Respiratory: Lungs Clear Cardiovascular: Regular Rate, Rhythm, Systolic Murmur Neurologic/Psychiatric: Alert, Oriented x3 Hospital Course He was admitted to the hospital secondary to acute hypoxic respiratory failure secondary to heart failure exacerbation. She was treated with Lasix and did well. She was titrated down on oxygen. She was found to have an elevated troponin though and underwent cardiac cath. This revealed multivessel disease. She also had an severe mitral regurgitation and had a FRANCE. Cardiology was consulted to help manage this and ultimately patient was transferred to for high risk intervention and mitral valve surgery. Dr. Reyna arranged transfer. She was discharged to transfer by private vehicle at her request. was made aware of this. She is to follow-up with Dr. Curiel after discharge from . Labs (last 24 hrs) Laboratory Tests 11/27/22 20:41: Glucometer 246H 11/28/22 04:17: Sodium Level 137, Potassium Level 4.8, Chloride Level 106, Carbon Dioxide Level 23, Anion Gap 8, Blood Urea Nitrogen 20H, Creatinine 0.81, Estimat Glomerular Filtration Rate 77, BUN/Creatinine Ratio 25, Glucose Level 141H, Calcium Level 8.3L, Phosphorus Level 3.2, Magnesium Level 2.1 11/28/22 04:18: White Blood Count 9.9, Red Blood Count 3.60L, Hemoglobin 7.9L, Hematocrit 27L, Mean Corpuscular Volume 76L, Mean Corpuscular Hemoglobin 22L, Mean Corpuscular Hemoglobin Concent 29L, Red Cell Distribution Width 18.4H, Platelet Count 315, Mean Platelet Volume 9.7, Immature Granulocyte % (Auto) 0, Neutrophils (%) (Auto) 47, Lymphocytes (%) (Auto) 40, Monocytes (%) (Auto) 9, Eosinophils (%) (Auto) 3, Basophils (%) (Auto) 1, Neutrophils # (Auto) 4.6, Lymphocytes # (Auto) 4.0, Monocytes # (Auto) 0.9, Eosinophils # (Auto) 0.3, Basophils # (Auto) 0.1, Immature Granulocyte # (Auto) 0.0, Prothrombin Time 31.4H, INR Comment 3.1H 11/28/22 10:43: Glucometer 175H Microbiology 11/24/22 MRSA Screen - Final, Complete MRSA not isolated Patient resulted labs reviewed. Pending Labs Laboratory Tests 11/28/22 10:43: Glucometer 175 Imaging: Reviewed Imaging Report Discussion & Recommendations Discharge Planning: >30 minutes discharge planning Discharge Home Medications: Active Scripts Active Reported Laxative (Bisacodyl) 5 Mg Tablet 5 Mg PO DAILY PRN Aspirin EC (Aspirin) 81 Mg Tablet.dr 81 Mg PO HS Morphine Sulfate ER (Morphine Sulfate) 15 Mg Tablet.er 15 Mg PO Q12H Oxycodone HCl 5 Mg Tablet 5 Mg PO BID Gabapentin 600 Mg Tablet 1,200 Mg PO HS TAKES 2 (600MG) TABS Warfarin Sodium 1 Mg Tablet 3 Mg PO HS TAKES 3 (1MG) TABS +10MG TAB TO EQUAL 13MG Warfarin Sodium 10 Mg Tablet 10 Mg PO HS TAKES 10MG +3MG TAB TO EQUAL 13MG Colace (Docusate Sodium) 100 Mg Capsule 100 Mg PO Q48H Duloxetine HCl 60 Mg Capsule.dr 60 Mg PO HS Gabapentin 600 Mg Tablet 600 Mg PO DAILY Metformin HCl 500 Mg Tablet 500 Mg PO BID Lisinopril 10 Mg Tablet 10 Mg PO DAILY Furosemide 40 Mg Tablet 60 Mg PO DAILY TAKES 1 & (40MG) TAB Allopurinol 100 Mg Tablet 100 Mg PO DAILY Instructions to patient/family Please see electronic discharge instructions given to patient. Copy Copies To 1: BEN CURIEL MD Problem Qualifiers (1) T2DM (type 2 diabetes mellitus): Diabetes mellitus fpc insulin use: without fpc use SPIKE JACKSON MD Nov 28, 2022 09:14
[2022-11-28] MEDS ORDERED: MIDAZOLAM INJ 5 MG/5 ML VIAL IV ONE (09:45)
[2022-11-28] MEDS ORDERED: fentaNYL INJECTION 100 MCG/2 ML VIAL IV ONE (09:45)
[2022-11-28] MEDS: DOCUSATE SODIUM 100 MG CAPSULE PO SCH (09:48)
[2022-11-28] MEDS: FUROSEMIDE INJECTION 40 MG/4 ML VIAL IV SCH (09:48)
[2022-11-28] MEDS: SENNOSIDES 8.6 MG (SENOKOT) TAB PO SCH (09:49)
[2022-11-28] MEDS: morphine EXTENDED RELEASE 15 MG TABLET PO SCH (11:00)
[2022-11-28] MEDS: oxyCODONE IMMEDIATE RELEASE 5 MG TABLET PO SCH (11:01)
[2022-11-28] MEDS: GABAPENTIN 600 MG TABLET PO SCH (11:01)
[2022-11-28] MEDS: ALLOPURINOL 100 MG TABLET PO SCH (11:09)
[2022-11-28] MEDS: RT-ALBUTEROL SULF 2.5 MG/3 ML PRE-MIX VIAL INH SCH (11:19)
== END 2022-11-28 17:13 | disposition short-term general hospital (02) | DRG 280 ==
LOC: EDUNIT# 00:19 → ER FS 00:20 → ICU 02:50 → CSD 11-26 12:30
PROVIDERS: ADMIT Internal Medicine; ATTEND Family Medicine
PROC: 5A09357 Assistance with Respiratory Ventilation, Less than 24 Consecutive Hours, Continuous Positive Airway Pressure (ICD-10-PCS; 2022-11-24)
PROC: 4A023N7 Measurement of Cardiac Sampling and Pressure, Left Heart, Percutaneous Approach (ICD-10-PCS; principal; 2022-11-27)
PROC: B2111ZZ Fluoroscopy of Multiple Coronary Arteries using Low Osmolar Contrast (ICD-10-PCS; 2022-11-27)
DX: I11.0 Hypertensive heart disease with heart failure (principal); I50.33 Acute on chronic diastolic (congestive) heart failure; I21.4 Non-ST elevation (NSTEMI) myocardial infarction; J96.21 Acute and chronic respiratory failure with hypoxia; Z86.711 Personal history of pulmonary embolism; Z79.01 Long term (current) use of anticoagulants; Z79.82 Long term (current) use of aspirin; Z79.899 Other long term (current) drug therapy; I25.10 Atherosclerotic heart disease of native coronary artery without angina pectoris; M19.90 Unspecified osteoarthritis, unspecified site; G89.29 Other chronic pain; M54.9 Dorsalgia, unspecified; E11.9 Type 2 diabetes mellitus without complications; Z20.822 Contact with and (suspected) exposure to COVID-19; E66.9 Obesity, unspecified; M10.9 Gout, unspecified; I34.0 Nonrheumatic mitral (valve) insufficiency
CPT/HCPCS: 36415; 71045; 80048; 80053; 80061; 82728; 82947; 83036; 83540; 83550; 83605; 83735; 83880; 84100; 84484; 85007; 85025; 85027; 85610; 85730; 87081; 87636; 93005; 93041; 93306; 93312; 93458; 94640; 94760; 94761